=== PATIENT | female | born 1945 | race Caucasian/White ===

== ENCOUNTER 2018-07-22 10:30 | Outpatient (RCR) | payer MEDICARE, OTHER, SELFPAY ==
--- NOTE | 2018-05-15 17:34 | PT.OIE ---
Current Diagnoses Type 2 diabetes mellitus with diabetic neuropathy, unspecified (05/15/18) Corns and callosities (05/15/18) Stiffness of unspecified ankle, not elsewhere classified (05/15/18) Muscle weakness (generalized) (05/15/18) Other abnormalities of gait and mobility (05/15/18) Localized edema (05/15/18) Provider Visit Care Team Role Provider Type Stefani Simpson PA-C Attending Provider Non-Staff Specialty: Medical Address: [address] [place] [address], [id number] Email: Physical Therapy Initial Evaluation PT-OP-A Visit Information Start: 05/15/18 16:46 Freq: Status: Active Protocol: Document 05/15/18 11:15 DCW (Rec: 05/15/18 17:32 DCW [id number]) Out-Patient Physical Therapy Visit Information Visit Information Visit Type Initial Evaluation Visit Start Time 11:15 Visit Stop Time 11:55 Total Visit Minutes 40 Visit Number 1 Number of PROPELLER TESTER Visits 0 Evaluation Information Evaluation Date 05/15/18 PT-OP-B Current Condition Start: 05/15/18 16:46 Freq: Status: Active Protocol: Document 05/15/18 11:15 DCW (Rec: 05/15/18 17:32 DCW [id number]) Current Condition History of Current Condition Onset Date s/p 4 years Current Complaints Pain, weakness, edema, and neuropathy in B feet, L>R. History of Current Condition Pt is a 72 year old female reporting a complicated and tangential history of bilateral ankle edema, pain, weakness, and difficulty walking. Pt reports that following an Aortic valve replacement in October,, she was doing well for 8 months, but then began getting sicker and sicker, bouncing in and out of hospitals and nursing homes, until finding that she had an infection in her replaced valve, resulting in another surgery in June,. 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 This has made it very difficult for her to go out and participate in any activities, and she struggles just walking, or being out in her yard. 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 Treatment Goals Patient/Caregiver Goals Improve functional mobility, decrease ankle edema PT-OP-C Subjective Start: 05/15/18 16:46 Freq: Status: Active Protocol: Document 05/15/18 11:15 DCW (Rec: 05/15/18 17:32 DCW [id number]) Patient Questionnaires Lower Extremity Functional Scale LEFS Score 37/80 = 46.25% LEFS Impairment 40 to 59% Impaired (Score 32- 47) OP-PT Pain Assessment Location Bilateral Ankle Intensity 3 Scale Used Numeric (1 - 10) Description Dull Tightness PT-OP-H Neuro Start: 05/15/18 16:46 Freq: Status: Active Protocol: Document 05/15/18 11:15 DCW (Rec: 05/15/18 17:32 DCW [id number]) Sensation Evaluation Gross Sensation Gross Sensation Left LE Impaired Sensation Description Numbness Location Details Right Foot Light Touch Intact/Normal Sharp/Dull Intact/Normal Deep Pressure Intact/Normal Left Foot Light Touch Absent Sharp/Dull Impaired Deep Pressure Impaired PT-OP-J Posture/Palpation/Skin Start: 05/15/18 16:46 Freq: Status: Active Protocol: Document 05/15/18 11:15 DCW (Rec: 05/15/18 17:32 DCW [id number]) Skin Assessment Edema Assessment Bilateral Ankle Edema Type Pitting Edema Degree 3+ Edema Appearance Discolored Firm Subjective Edema Description Pain Tightness Circumference Measurement 4 Location 10 cm Superior to Malleoli Comments L 31, R 34.2 3 Location Malleolar Comments L 38.5, R 37.2 2 Location Mid-Arch Comments L 28.7, R 29.5 1 Location Figure-8 Ankle Comments L 72.4, R 70.5 PT-OP-K Range of Motion Start: 05/15/18 16:46 Freq: Status: Active Protocol: Document 05/15/18 11:15 DCW (Rec: 05/15/18 17:32 DCW [id number]) Ankle and Foot Goniometric Range of Motion Ankle and Foot Measured in Degrees Right Active Ankle/Foot ROM WFL No Testing Position Sitting Dorsiflexion with Knee Flexed 10 Plantarflexion 45 Inversion 20 Eversion 20 Left Active Ankle/Foot ROM WFL No Testing Position Sitting Dorsiflexion with Knee Flexed 5 Plantarflexion 42 Inversion 13 Eversion 15 Ankle and Foot ROM Limitations ROM Limitations Soft Tissue Tightness Swelling PT-OP-M Strength Start: 05/15/18 16:46 Freq: Status: Active Protocol: Document 05/15/18 11:15 DCW (Rec: 05/15/18 17:32 DCW [id number]) Hip Strength Hip Manual Muscle Testing Right Flexion (L2) 4+ Good+ Abduction 4 Good Adduction 4- Good- Left Flexion (L2) 4 Good Abduction 4 Good Adduction 4- Good- Knee Strength Knee Manual Muscle Testing Right Flexion (S2) 4+ Good+ Extension (L3) 4+ Good+ Left Flexion (S2) 4+ Good+ Extension (L3) 4+ Good+ Ankle/Foot Strength Ankle and Foot Manual Muscle Testing Right Dorsiflexion (L4) 4- Good- Plantarflexion (S1) 3+ Fair+ Inversion 4- Good- Eversion (S1) 4 Good Left Dorsiflexion (L4) 4 Good Plantarflexion (S1) 3+ Fair+ Inversion 4- Good- Eversion (S1) 4 Good PT-OP-Q Treatments Start: 05/15/18 16:46 Freq: Status: Active Protocol: Document 05/15/18 11:15 DCW (Rec: 05/15/18 17:32 [facility] [id number]) Therapeutic Exercises Sitting Exercises 2 Sitting Exercise Name Resisted Ankle plantar flexion Side bilateral Resistance Lv 2 Equipment Used T-band 1 Sitting Exercise Name Resisted Ankle dorsiflexion Side bilateral Resistance Lv 2 Equipment Used T-band PT-OP-T Assessment and Plan Start: 05/15/18 16:46 Freq: Status: Active Protocol: Document 05/15/18 11:15 DCW (Rec: 05/15/18 17:32 [facility] [id number]) Physical Therapy Assessment Rehab Potential Rehabilitation Potential Good Evaluation Complexity Number of Personal Factors/Comorbidities 3 or More Number of Body Systems Impaired 4 or More Clinical Presentation at Evaluation Unstable Impairments Impairments Activity Tolerance Edema Functional Activities Gait Pain ROM Sensation Soft Tissue Mobility Strength Goals Four Impairment Ankle ROM Axle Bearing Polisher Goal (LTG) Bilateral ankle ROM to WNL LTG Duration 07/15/18 Three Impairment Strength Axle Bearing Polisher Goal (LTG) Bilateral LE MMT grossly 4/5 LTG Duration 07/15/18 Two Impairment Edema Short Term Goal (STG) Pt girth around malleoli to decrease 3 cm STG Duration 06/14/18 Fdc Goal (LTG) Pt figure-8 measurement to decrease by at least 5 cm LTG Duration 07/15/18 One Impairment Activity participation Short Term Goal (STG) Pt to report ability to walk across yard without feeling off balance STG Duration 06/14/18 Assessment Summary Assessment Pt presents with significant 3 + pitting edema in bilateral ankles, decreased activity tolerance, weakness, decreased ROM, limited activity tolerance, and left-foot stocking neuropathy below the ankle. Pt should benefit from skilled therapy focusing on ankle mobility and strengthening, edema control, patient education, and pain- control modalities. Physical Therapy Plan Frequency and Duration Frequency of Treatment 2x/Week Duration of Treatment 12 weeks Plan of Care Start Date 05/15/18 Plan of Care End Date 08/07/18 Therapeutic Interventions Therapeutic Interventions Aquatic Therapy Gait Training Home Exercise Program Joint Mobilizations Lymphedema Management Manual Therapy Neuromuscular Re-education Patient/Caregiver Education Self-Care/Home Management Soft Tissue Mobilization Therapeutic Activities Therapeutic Exercises Modalities Cold Pack/Ice Massage Electric Stimulation Hot Packs Ultrasound Next Visit Focus/Plan Next Note Type Treatment Note Next Visit Plan Edema management, ankle strengthening
--- NOTE | 2018-05-15 17:35 | PT.OPPOC ---
Current Diagnoses Type 2 diabetes mellitus with diabetic neuropathy, unspecified (05/15/18) Corns and callosities (05/15/18) Stiffness of unspecified ankle, not elsewhere classified (05/15/18) Muscle weakness (generalized) (05/15/18) Other abnormalities of gait and mobility (05/15/18) Localized edema (05/15/18) Provider Visit Care Team Role Provider Type Stefani Simpson PA-C Attending Provider Non-Staff Specialty: Medical Address: [address] [place] [address], [id number] Email: Plan Of Care PT-OP-T Assessment and Plan Start: 05/15/18 16:46 Freq: Status: Active Protocol: Document 05/15/18 11:15 DCW (Rec: 05/15/18 17:32 DCW [id number]) Physical Therapy Assessment Rehab Potential Rehabilitation Potential Good Evaluation Complexity Number of Personal Factors/Comorbidities 3 or More Number of Body Systems Impaired 4 or More Clinical Presentation at Evaluation Unstable Impairments Impairments Activity Tolerance Edema Functional Activities Gait Pain ROM Sensation Soft Tissue Mobility Strength Goals Four Impairment Ankle ROM Spa Manager Goal (LTG) Bilateral ankle ROM to WNL LTG Duration 07/15/18 Three Impairment Strength Spa Manager Goal (LTG) Bilateral LE MMT grossly 4/5 LTG Duration 07/15/18 Two Impairment Edema Short Term Goal (STG) Pt girth around malleoli to decrease 3 cm STG Duration 06/14/18 Spa Manager Goal (LTG) Pt figure-8 measurement to decrease by at least 5 cm LTG Duration 07/15/18 One Impairment Activity participation Short Term Goal (STG) Pt to report ability to walk across yard without feeling off balance STG Duration 06/14/18 Assessment Summary Assessment Pt presents with significant 3 + pitting edema in bilateral ankles, decreased activity tolerance, weakness, decreased ROM, limited activity tolerance, and left-foot stocking neuropathy below the ankle. Pt should benefit from skilled therapy focusing on ankle mobility and strengthening, edema control, patient education, and pain- control modalities. Physical Therapy Plan Frequency and Duration Frequency of Treatment 2x/Week Duration of Treatment 12 weeks Plan of Care Start Date 05/15/18 Plan of Care End Date 08/07/18 Therapeutic Interventions Therapeutic Interventions Aquatic Therapy Gait Training Home Exercise Program Joint Mobilizations Lymphedema Management Manual Therapy Neuromuscular Re-education Patient/Caregiver Education Self-Care/Home Management Soft Tissue Mobilization Therapeutic Activities Therapeutic Exercises Modalities Cold Pack/Ice Massage Electric Stimulation Hot Packs Ultrasound Next Visit Focus/Plan Next Note Type Treatment Note Next Visit Plan Edema management, ankle strengthening Plan of Care Dates Plan of Care Start Date 05/15/18 Plan of Care End Date 08/07/18 Please Sign and Return: I have reviewed this Plan of Care and certify that the skilled therapy services above are required to meet the patient?s needs. Physician Signature Date Printed Name and Credentials Clinical Instructor Signature Printed Name and Credentials
--- NOTE | 2018-06-04 16:29 | PT.OTN ---
Current Diagnoses Corns and callosities (06/04/18) Localized edema (06/04/18) Physical Therapy Treatment Note PT-OP-A Visit Information Start: 05/15/18 16:46 Freq: Status: Active Protocol: Document 06/04/18 11:22 [facility] (Rec: 06/04/18 16:29 [facility] [id number]) Out-Patient Physical Therapy Visit Information Visit Information Visit Type Treatment Note Visit Start Time 11:22 Visit Stop Time 12:07 Total Visit Minutes 45 Visit Number 2 Number of PATIENT PORTAL REPRESENTATIVE Visits 0 Evaluation Information Evaluation Date 05/15/18 PT-OP-B Current Condition Start: 05/15/18 16:46 Freq: Status: Active Protocol: Document 05/15/18 11:15 DCW (Rec: 05/15/18 17:32 DCW [id number]) Current Condition History of Current Condition Onset Date s/p 4 years Current Complaints Pain, weakness, edema, and neuropathy in B feet, L>R. History of Current Condition Pt is a 72 year old female reporting a complicated and tangential history of bilateral ankle edema, pain, weakness, and difficulty walking. Pt reports that following an Aortic valve replacement in October,, she was doing well for 8 months, but then began getting sicker and sicker, bouncing in and out of hospitals and nursing homes, until finding that she had an infection in her replaced valve, resulting in another surgery in June,. 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 This has made it very difficult for her to go out and participate in any activities, and she struggles just walking, or being out in her yard. 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 Doesn't wear compression socks, has had hard time getting fit. Takes small dose Furosemide, unable to take more. PT-OP-H Neuro Start: 05/15/18 16:46 Freq: Status: Active Protocol: Document 05/15/18 11:15 DCW (Rec: 05/15/18 17:32 DCW [id number]) Sensation Evaluation Gross Sensation Gross Sensation Left LE Impaired Sensation Description Numbness Location Details Right Foot Light Touch Intact/Normal Sharp/Dull Intact/Normal Deep Pressure Intact/Normal Left Foot Light Touch Absent Sharp/Dull Impaired Deep Pressure Impaired PT-OP-J Posture/Palpation/Skin Start: 05/15/18 16:46 Freq: Status: Active Protocol: Document 05/15/18 11:15 DCW (Rec: 05/15/18 17:32 DCW [id number]) Skin Assessment Edema Assessment Bilateral Ankle Edema Type Pitting Edema Degree 3+ Edema Appearance Discolored Firm Subjective Edema Description Pain Tightness Circumference Measurement 4 Location 10 cm Superior to Malleoli Comments L 31, R 34.2 3 Location Malleolar Comments L 38.5, R 37.2 2 Location Mid-Arch Comments L 28.7, R 29.5 1 Location Figure-8 Ankle Comments L 72.4, R 70.5 PT-OP-K Range of Motion Start: 05/15/18 16:46 Freq: Status: Active Protocol: Document 05/15/18 11:15 DCW (Rec: 05/15/18 17:32 DCW [id number]) Ankle and Foot Goniometric Range of Motion Ankle and Foot Measured in Degrees Right Active Ankle/Foot ROM WFL No Testing Position Sitting Dorsiflexion with Knee Flexed 10 Plantarflexion 45 Inversion 20 Eversion 20 Left Active Ankle/Foot ROM WFL No Testing Position Sitting Dorsiflexion with Knee Flexed 5 Plantarflexion 42 Inversion 13 Eversion 15 Ankle and Foot ROM Limitations ROM Limitations Soft Tissue Tightness Swelling PT-OP-M Strength Start: 05/15/18 16:46 Freq: Status: Active Protocol: Document 05/15/18 11:15 DCW (Rec: 05/15/18 17:32 DCW [id number]) Hip Strength Hip Manual Muscle Testing Right Flexion (L2) 4+ Good+ Abduction 4 Good Adduction 4- Good- Left Flexion (L2) 4 Good Abduction 4 Good Adduction 4- Good- Knee Strength Knee Manual Muscle Testing Right Flexion (S2) 4+ Good+ Extension (L3) 4+ Good+ Left Flexion (S2) 4+ Good+ Extension (L3) 4+ Good+ Ankle/Foot Strength Ankle and Foot Manual Muscle Testing Right Dorsiflexion (L4) 4- Good- Plantarflexion (S1) 3+ Fair+ Inversion 4- Good- Eversion (S1) 4 Good Left Dorsiflexion (L4) 4 Good Plantarflexion (S1) 3+ Fair+ Inversion 4- Good- Eversion (S1) 4 Good PT-OP-Q Treatments Start: 05/15/18 16:46 Freq: Status: Active Protocol: Document 06/04/18 11:22 [facility] (Rec: 06/04/18 11:45 [facility] [id number]) Cardio Equipment Recumbent Elliptical (Sparktrend) Duration (Minutes) 5 Resistance 1 Therapeutic Exercises Sitting Exercises 4 Sitting Exercise Name quad sets, glut sets, SAQ, hip IR/ER, hip ab/ad Reps/Minutes 10x ea 3 Sitting Exercise Name ankle circles Reps/Minutes 10x ea direction toma 2 Sitting Exercise Name Resisted Ankle plantar flexion Side bilateral Resistance Lv 2 Equipment Used T-band 1 Sitting Exercise Name Resisted Ankle dorsiflexion Side bilateral Resistance Lv 2 Equipment Used T-band Self-Care/Home Management Treatment Education Patient Education Home Exercise Program Other Education Importance of compression stockings for edema reduction; patient previously told they were not made large enough for her. Measurements taken and patient given written info regarding correct size and compression level (start 15-20 mm HG) she can order online. Given written HEP PT-OP-T Assessment and Plan Start: 05/15/18 16:46 Freq: Status: Active Protocol: Document 06/04/18 11:22 [facility] (Rec: 06/04/18 16:29 [facility] [id number]) Physical Therapy Assessment Assessment Summary Assessment Tolerated today's PT session well with increased ther ex, demonstrated good understanding of exercise handouts and is receptive to obtaining compression stockings; has been frustrated by previously being told they weren't made large enough for her. Patient requires much encouragement Physical Therapy Plan Frequency and Duration Frequency of Treatment 2x/Week Duration of Treatment 12 weeks Plan of Care Start Date 05/15/18 Plan of Care End Date 08/07/18 Therapeutic Interventions Therapeutic Interventions Aquatic Therapy Gait Training Home Exercise Program Joint Mobilizations Lymphedema Management Manual Therapy Neuromuscular Re-education Patient/Caregiver Education Self-Care/Home Management Soft Tissue Mobilization Therapeutic Activities Therapeutic Exercises Modalities Cold Pack/Ice Massage Electric Stimulation Hot Packs Ultrasound Next Visit Focus/Plan Next Note Type Treatment Note Next Visit Plan Edema management, ankle strengthening
--- NOTE | 2018-06-06 14:55 | PT.OTN ---
Current Diagnoses Corns and callosities (06/06/18) Localized edema (06/06/18) Physical Therapy Treatment Note PT-OP-A Visit Information Start: 05/15/18 16:46 Freq: Status: Active Protocol: Document 06/06/18 13:02 [facility] (Rec: 06/06/18 13:48 [facility] [id number]) Out-Patient Physical Therapy Visit Information Visit Information Visit Type Treatment Note Visit Start Time 13:02 Visit Stop Time 13:47 Total Visit Minutes 45 Visit Number 3 Number of WOOD CABINET FINISHER Visits 0 PT-OP-B Current Condition Start: 05/15/18 16:46 Freq: Status: Active Protocol: Document 05/15/18 11:15 DCW (Rec: 05/15/18 17:32 DCW [id number]) Current Condition History of Current Condition Onset Date s/p 4 years Current Complaints Pain, weakness, edema, and neuropathy in B feet, L>R. History of Current Condition Pt is a 72 year old female reporting a complicated and tangential history of bilateral ankle edema, pain, weakness, and difficulty walking. Pt reports that following an Aortic valve replacement in October,, she was doing well for 8 months, but then began getting sicker and sicker, bouncing in and out of hospitals and nursing homes, until finding that she had an infection in her replaced valve, resulting in another surgery in June,. 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 This has made it very difficult for her to go out and participate in any activities, and she struggles just walking, or being out in her yard. 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 States she hasn't ordered compression stockings yet, but plans to with assistance of . Has some questions about HEP PT-OP-H Neuro Start: 05/15/18 16:46 Freq: Status: Active Protocol: Document 05/15/18 11:15 DCW (Rec: 05/15/18 17:32 DCW [id number]) Sensation Evaluation Gross Sensation Gross Sensation Left LE Impaired Sensation Description Numbness Location Details Right Foot Light Touch Intact/Normal Sharp/Dull Intact/Normal Deep Pressure Intact/Normal Left Foot Light Touch Absent Sharp/Dull Impaired Deep Pressure Impaired PT-OP-J Posture/Palpation/Skin Start: 05/15/18 16:46 Freq: Status: Active Protocol: Document 05/15/18 11:15 DCW (Rec: 05/15/18 17:32 DCW [id number]) Skin Assessment Edema Assessment Bilateral Ankle Edema Type Pitting Edema Degree 3+ Edema Appearance Discolored Firm Subjective Edema Description Pain Tightness Circumference Measurement 4 Location 10 cm Superior to Malleoli Comments L 31, R 34.2 3 Location Malleolar Comments L 38.5, R 37.2 2 Location Mid-Arch Comments L 28.7, R 29.5 1 Location Figure-8 Ankle Comments L 72.4, R 70.5 PT-OP-K Range of Motion Start: 05/15/18 16:46 Freq: Status: Active Protocol: Document 05/15/18 11:15 DCW (Rec: 05/15/18 17:32 DCW [id number]) Ankle and Foot Goniometric Range of Motion Ankle and Foot Measured in Degrees Right Active Ankle/Foot ROM WFL No Testing Position Sitting Dorsiflexion with Knee Flexed 10 Plantarflexion 45 Inversion 20 Eversion 20 Left Active Ankle/Foot ROM WFL No Testing Position Sitting Dorsiflexion with Knee Flexed 5 Plantarflexion 42 Inversion 13 Eversion 15 Ankle and Foot ROM Limitations ROM Limitations Soft Tissue Tightness Swelling PT-OP-M Strength Start: 05/15/18 16:46 Freq: Status: Active Protocol: Document 05/15/18 11:15 DCW (Rec: 05/15/18 17:32 DCW [id number]) Hip Strength Hip Manual Muscle Testing Right Flexion (L2) 4+ Good+ Abduction 4 Good Adduction 4- Good- Left Flexion (L2) 4 Good Abduction 4 Good Adduction 4- Good- Knee Strength Knee Manual Muscle Testing Right Flexion (S2) 4+ Good+ Extension (L3) 4+ Good+ Left Flexion (S2) 4+ Good+ Extension (L3) 4+ Good+ Ankle/Foot Strength Ankle and Foot Manual Muscle Testing Right Dorsiflexion (L4) 4- Good- Plantarflexion (S1) 3+ Fair+ Inversion 4- Good- Eversion (S1) 4 Good Left Dorsiflexion (L4) 4 Good Plantarflexion (S1) 3+ Fair+ Inversion 4- Good- Eversion (S1) 4 Good PT-OP-Q Treatments Start: 05/15/18 16:46 Freq: Status: Active Protocol: Document 06/06/18 13:02 [facility] (Rec: 06/06/18 13:48 [facility] [id number]) Cardio Equipment Recumbent Stepper (Sci-Fit) Duration (Minutes) 7 Resistance 1 Seat Position 12 Gym Equipment Shuttle Recovery Unilateral Squats Resistance 37 Shuttle Recovery Platform Stable Reps/Time 10x Bilateral Squats Resistance 50 Shuttle Recovery Platform Stable Reps/Time 10x Therapeutic Exercises Supine Exercises 3 Supine Exercise Name SAQ, heel slide, hip ab Reps/Minutes 10 1 Supine Exercise Name hip ab/ER with L2 TB Reps/Minutes 10 2 Supine Exercise Name pillow squeeze Reps/Minutes 12 Sitting Exercises 4 Sitting Exercise Name quad sets, glut sets, SAQ, hip IR/ER, hip ab/ad Reps/Minutes 10x ea 3 Sitting Exercise Name ankle circles Reps/Minutes 10x ea direction toma 2 Sitting Exercise Name Resisted Ankle plantar flexion , df, inv,ev Side bilateral Resistance Lv 2 Equipment Used T-band Standing Exercises 1 Standing Exercise Name HC stretch, standing ankle pumps Equipment Used ADI Manual Therapy Treatment Taping 1 Body Location right foot ankle Treatment Focus edema reduction Type of Tape Kinesio Tape Self-Care/Home Management Treatment Education Patient Education Home Exercise Program Other Education review HEP with modifications and clarifications made. PT-OP-T Assessment and Plan Start: 05/15/18 16:46 Freq: Status: Active Protocol: Document 06/06/18 13:02 [facility] (Rec: 06/06/18 14:55 [facility] [id number]) Physical Therapy Assessment Goals Four Impairment Ankle ROM Assisted Goal (LTG) Bilateral ankle ROM to WNL LTG Duration 07/15/18 Three Impairment Strength Assisted Goal (LTG) Bilateral LE MMT grossly 4/5 LTG Duration 07/15/18 Two Impairment Edema Short Term Goal (STG) Pt girth around malleoli to decrease 3 cm STG Duration 06/14/18 Assisted Goal (LTG) Pt figure-8 measurement to decrease by at least 5 cm LTG Duration 07/15/18 One Impairment Activity participation Short Term Goal (STG) Pt to report ability to walk across yard without feeling off balance STG Duration 06/14/18 Assessment Summary Assessment Good tolerance for progression of ther ex, has not ordered compression stockings yet. Demonstrated good understanding of clarifications and corrections made to HEP performance, but short-term memory appears impaired so despite written handout may need further review. Feel compression stockings will be most effective in decreasing her edema but will assess response to kinesiotape, and do manual lymphatic drainage next session Physical Therapy Plan Frequency and Duration Frequency of Treatment 2x/Week Duration of Treatment 12 weeks Plan of Care Start Date 05/15/18 Plan of Care End Date 08/07/18 Therapeutic Interventions Therapeutic Interventions Aquatic Therapy Gait Training Home Exercise Program Joint Mobilizations Lymphedema Management Manual Therapy Neuromuscular Re-education Patient/Caregiver Education Self-Care/Home Management Soft Tissue Mobilization Therapeutic Activities Therapeutic Exercises Modalities Cold Pack/Ice Massage Electric Stimulation Hot Packs Ultrasound Next Visit Focus/Plan Next Note Type Treatment Note Next Visit Plan Edema management, ankle strengthening, LE strengthening, manual lymphatic drainage. May consider LE lymphatic wrapping .
--- NOTE | 2018-06-11 17:30 | PT.OTN ---
Current Diagnoses Corns and callosities (06/11/18) Localized edema (06/11/18) Physical Therapy Treatment Note PT-OP-A Visit Information Start: 05/15/18 16:46 Freq: Status: Active Protocol: Document 06/11/18 09:45 [facility] (Rec: 06/11/18 17:30 [facility] [id number]) Out-Patient Physical Therapy Visit Information Visit Information Visit Type Treatment Note Visit Start Time 09:45 Visit Stop Time 10:25 Total Visit Minutes 40 Visit Number 4 Number of SPECIFICATION WRITER Visits 1 Evaluation Information Evaluation Date 05/15/18 PT-OP-B Current Condition Start: 05/15/18 16:46 Freq: Status: Active Protocol: Document 05/15/18 11:15 DC[facility] (Rec: 05/15/18 17:32 DCW [id number]) Current Condition History of Current Condition Onset Date s/p 4 years Current Complaints Pain, weakness, edema, and neuropathy in B feet, L>R. History of Current Condition Pt is a 72 year old female reporting a complicated and tangential history of bilateral ankle edema, pain, weakness, and difficulty walking. Pt reports that following an Aortic valve replacement in October,, she was doing well for 8 months, but then began getting sicker and sicker, bouncing in and out of hospitals and nursing homes, until finding that she had an infection in her replaced valve, resulting in another surgery in June,. 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 This has made it very difficult for her to go out and participate in any activities, and she struggles just walking, or being out in her yard. 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 She also had some redness after taking the tape off. PT-OP-H Neuro Start: 05/15/18 16:46 Freq: Status: Active Protocol: Document 05/15/18 11:15 [facility] (Rec: 05/15/18 17:32 DCW [id number]) Sensation Evaluation Gross Sensation Gross Sensation Left LE Impaired Sensation Description Numbness Location Details Right Foot Light Touch Intact/Normal Sharp/Dull Intact/Normal Deep Pressure Intact/Normal Left Foot Light Touch Absent Sharp/Dull Impaired Deep Pressure Impaired PT-OP-J Posture/Palpation/Skin Start: 05/15/18 16:46 Freq: Status: Active Protocol: Document 05/15/18 11:15 DCW (Rec: 05/15/18 17:32 DCW [id number]) Skin Assessment Edema Assessment Bilateral Ankle Edema Type Pitting Edema Degree 3+ Edema Appearance Discolored Firm Subjective Edema Description Pain Tightness Circumference Measurement 4 Location 10 cm Superior to Malleoli Comments L 31, R 34.2 3 Location Malleolar Comments L 38.5, R 37.2 2 Location Mid-Arch Comments L 28.7, R 29.5 1 Location Figure-8 Ankle Comments L 72.4, R 70.5 PT-OP-K Range of Motion Start: 05/15/18 16:46 Freq: Status: Active Protocol: Document 05/15/18 11:15 DCW (Rec: 05/15/18 17:32 DCW [id number]) Ankle and Foot Goniometric Range of Motion Ankle and Foot Measured in Degrees Right Active Ankle/Foot ROM WFL No Testing Position Sitting Dorsiflexion with Knee Flexed 10 Plantarflexion 45 Inversion 20 Eversion 20 Left Active Ankle/Foot ROM WFL No Testing Position Sitting Dorsiflexion with Knee Flexed 5 Plantarflexion 42 Inversion 13 Eversion 15 Ankle and Foot ROM Limitations ROM Limitations Soft Tissue Tightness Swelling PT-OP-M Strength Start: 05/15/18 16:46 Freq: Status: Active Protocol: Document 05/15/18 11:15 DCW (Rec: 05/15/18 17:32 DCW [id number]) Hip Strength Hip Manual Muscle Testing Right Flexion (L2) 4+ Good+ Abduction 4 Good Adduction 4- Good- Left Flexion (L2) 4 Good Abduction 4 Good Adduction 4- Good- Knee Strength Knee Manual Muscle Testing Right Flexion (S2) 4+ Good+ Extension (L3) 4+ Good+ Left Flexion (S2) 4+ Good+ Extension (L3) 4+ Good+ Ankle/Foot Strength Ankle and Foot Manual Muscle Testing Right Dorsiflexion (L4) 4- Good- Plantarflexion (S1) 3+ Fair+ Inversion 4- Good- Eversion (S1) 4 Good Left Dorsiflexion (L4) 4 Good Plantarflexion (S1) 3+ Fair+ Inversion 4- Good- Eversion (S1) 4 Good PT-OP-Q Treatments Start: 05/15/18 16:46 Freq: Status: Active Protocol: Document 06/11/18 09:45 [facility] (Rec: 06/11/18 17:30 [facility] [email or web address]) Cardio Equipment Recumbent Elliptical (BiodShangPin) Duration (Minutes) 8 Resistance 1 Gym Equipment Shuttle Recovery Unilateral Squats Resistance 37 Shuttle Recovery Platform Stable Reps/Time 10x Bilateral Squats Resistance 50 Shuttle Recovery Platform Stable Reps/Time 10x Therapeutic Exercises Supine Exercises 3 Supine Exercise Name SAQ, heel slide, hip ab Reps/Minutes 10 1 Supine Exercise Name hip ab/ER with L2 TB Reps/Minutes 10 2 Supine Exercise Name pillow squeeze Reps/Minutes 12 Sitting Exercises 4 Sitting Exercise Name quad sets, glut sets, SAQ, hip IR/ER, hip ab/ad Reps/Minutes 10x ea 3 Sitting Exercise Name ankle circles Reps/Minutes 10x ea direction toma 2 Sitting Exercise Name Resisted Ankle plantar flexion , df, inv,ev Side bilateral Resistance Lv 2 Equipment Used T-band Standing Exercises 1 Standing Exercise Name HC stretch, standing ankle pumps Equipment Used ADI PT-OP-T Assessment and Plan Start: 05/15/18 16:46 Freq: Status: Active Protocol: Document 06/11/18 09:45 [facility] (Rec: 06/11/18 17:30 [facility] [email or web address]) Physical Therapy Assessment Assessment Summary Assessment Pt need cues for exercise technique and use of correct muscles. She will try and get compression stockings before the next visit. Physical Therapy Plan Frequency and Duration Frequency of Treatment 2x/Week Duration of Treatment 12 weeks Plan of Care Start Date 05/15/18 Plan of Care End Date 08/07/18 Therapeutic Interventions Therapeutic Interventions Aquatic Therapy Gait Training Home Exercise Program Joint Mobilizations Lymphedema Management Manual Therapy Neuromuscular Re-education Patient/Caregiver Education Self-Care/Home Management Soft Tissue Mobilization Therapeutic Activities Therapeutic Exercises Modalities Cold Pack/Ice Massage Electric Stimulation Hot Packs Ultrasound Next Visit Focus/Plan Next Note Type Treatment Note Next Visit Plan Edema management, ankle strengthening, LE strengthening, manual lymphatic drainage. May consider LE lymphatic wrapping .
--- NOTE | 2018-06-14 09:43 | PT.OTN ---
Current Diagnoses Corns and callosities (06/14/18) Localized edema (06/14/18) Physical Therapy Treatment Note PT-OP-A Visit Information Start: 05/15/18 16:46 Freq: Status: Active Protocol: Document 06/14/18 09:00 DCW (Rec: 06/14/18 09:43 DCW [id number]) Out-Patient Physical Therapy Visit Information Visit Information Visit Type Treatment Note Visit Start Time 09:00 Visit Stop Time 09:45 Total Visit Minutes 45 Visit Number 5 Number of AIRPORT DUTY MANAGER Visits 0 Evaluation Information Evaluation Date 05/15/18 PT-OP-B Current Condition Start: 05/15/18 16:46 Freq: Status: Active Protocol: Document 05/15/18 11:15 DCW (Rec: 05/15/18 17:32 DCW [id number]) Current Condition History of Current Condition Onset Date s/p 4 years Current Complaints Pain, weakness, edema, and neuropathy in B feet, L>R. History of Current Condition Pt is a 72 year old female reporting a complicated and tangential history of bilateral ankle edema, pain, weakness, and difficulty walking. Pt reports that following an Aortic valve replacement in October,, she was doing well for 8 months, but then began getting sicker and sicker, bouncing in and out of hospitals and nursing homes, until finding that she had an infection in her replaced valve, resulting in another surgery in June,. 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 This has made it very difficult for her to go out and participate in any activities, and she struggles just walking, or being out in her yard. 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 PT-OP-H Neuro Start: 05/15/18 16:46 Freq: Status: Active Protocol: Document 05/15/18 11:15 DCW (Rec: 05/15/18 17:32 DCW [id number]) Sensation Evaluation Gross Sensation Gross Sensation Left LE Impaired Sensation Description Numbness Location Details Right Foot Light Touch Intact/Normal Sharp/Dull Intact/Normal Deep Pressure Intact/Normal Left Foot Light Touch Absent Sharp/Dull Impaired Deep Pressure Impaired PT-OP-J Posture/Palpation/Skin Start: 05/15/18 16:46 Freq: Status: Active Protocol: Document 05/15/18 11:15 DCW (Rec: 05/15/18 17:32 DCW [id number]) Skin Assessment Edema Assessment Bilateral Ankle Edema Type Pitting Edema Degree 3+ Edema Appearance Discolored Firm Subjective Edema Description Pain Tightness Circumference Measurement 4 Location 10 cm Superior to Malleoli Comments L 31, R 34.2 3 Location Malleolar Comments L 38.5, R 37.2 2 Location Mid-Arch Comments L 28.7, R 29.5 1 Location Figure-8 Ankle Comments L 72.4, R 70.5 PT-OP-K Range of Motion Start: 05/15/18 16:46 Freq: Status: Active Protocol: Document 05/15/18 11:15 DCW (Rec: 05/15/18 17:32 DCW [id number]) Ankle and Foot Goniometric Range of Motion Ankle and Foot Measured in Degrees Right Active Ankle/Foot ROM WFL No Testing Position Sitting Dorsiflexion with Knee Flexed 10 Plantarflexion 45 Inversion 20 Eversion 20 Left Active Ankle/Foot ROM WFL No Testing Position Sitting Dorsiflexion with Knee Flexed 5 Plantarflexion 42 Inversion 13 Eversion 15 Ankle and Foot ROM Limitations ROM Limitations Soft Tissue Tightness Swelling PT-OP-M Strength Start: 05/15/18 16:46 Freq: Status: Active Protocol: Document 05/15/18 11:15 DCW (Rec: 05/15/18 17:32 DCW [id number]) Hip Strength Hip Manual Muscle Testing Right Flexion (L2) 4+ Good+ Abduction 4 Good Adduction 4- Good- Left Flexion (L2) 4 Good Abduction 4 Good Adduction 4- Good- Knee Strength Knee Manual Muscle Testing Right Flexion (S2) 4+ Good+ Extension (L3) 4+ Good+ Left Flexion (S2) 4+ Good+ Extension (L3) 4+ Good+ Ankle/Foot Strength Ankle and Foot Manual Muscle Testing Right Dorsiflexion (L4) 4- Good- Plantarflexion (S1) 3+ Fair+ Inversion 4- Good- Eversion (S1) 4 Good Left Dorsiflexion (L4) 4 Good Plantarflexion (S1) 3+ Fair+ Inversion 4- Good- Eversion (S1) 4 Good PT-OP-Q Treatments Start: 05/15/18 16:46 Freq: Status: Active Protocol: Document 06/14/18 09:00 DCW (Rec: 06/14/18 09:43 DCW [id number]) Cardio Equipment Recumbent Elliptical (Biodex) Duration (Minutes) 8 Resistance 3 Gym Equipment Shuttle Recovery Unilateral Squats Resistance 37# Shuttle Recovery Platform Stable Reps/Time x20 Bilateral Squats Resistance 62# Shuttle Recovery Platform Stable Reps/Time x20 Therapeutic Exercises Supine Exercises 3 Supine Exercise Name SAQ, heel slide, hip ab Side bilateral Reps/Minutes x15 2 Supine Exercise Name Adductor ball squeeze Side bilateral Equipment Used Small purple ball Reps/Minutes x15 Comments 5 second hold Sitting Exercises 3 Sitting Exercise Name ankle circles Reps/Minutes 10x ea direction toma Standing Exercises 1 Standing Exercise Name HC stretch, standing ankle pumps Equipment Used ADI Other Exercises 3 Other Exercise Name Resisted Backward stepping Side bilateral Resistance Yellow Equipment Used T-band 2 Other Exercise Name Resisted Forward stepping Side bilateral Resistance Yellow Equipment Used T-band 1 Other Exercise Name Resisted Side-stepping Side bilateral Resistance Yellow Equipment Used T-band PT-OP-T Assessment and Plan Start: 05/15/18 16:46 Freq: Status: Active Protocol: Document 06/14/18 09:00 DCW (Rec: 06/14/18 09:43 DCW [id number]) Physical Therapy Assessment Goals Four Impairment Ankle ROM Forestry Professor Goal (LTG) Bilateral ankle ROM to WNL LTG Duration 07/15/18 Three Impairment Strength Forestry Professor Goal (LTG) Bilateral LE MMT grossly 4/5 LTG Duration 07/15/18 Two Impairment Edema Short Term Goal (STG) Pt girth around malleoli to decrease 3 cm STG Duration 06/14/18 Forestry Professor Goal (LTG) Pt figure-8 measurement to decrease by at least 5 cm LTG Duration 07/15/18 One Impairment Activity participation Short Term Goal (STG) Pt to report ability to walk across yard without feeling off balance STG Duration 06/14/18 Assessment Summary Assessment Pt required fewer cues today to perform TherEx, unfortunately pt still has not acquired compression stockings . Physical Therapy Plan Frequency and Duration Frequency of Treatment 2x/Week Duration of Treatment 12 weeks Plan of Care Start Date 05/15/18 Plan of Care End Date 08/07/18 Therapeutic Interventions Therapeutic Interventions Aquatic Therapy Gait Training Home Exercise Program Joint Mobilizations Lymphedema Management Manual Therapy Neuromuscular Re-education Patient/Caregiver Education Self-Care/Home Management Soft Tissue Mobilization Therapeutic Activities Therapeutic Exercises Modalities Cold Pack/Ice Massage Electric Stimulation Hot Packs Ultrasound Next Visit Focus/Plan Next Note Type Treatment Note Next Visit Plan Edema management, ankle strengthening, LE strengthening, manual lymphatic drainage. May consider LE lymphatic wrapping .
--- NOTE | 2018-06-19 16:42 | PT.OTN ---
Current Diagnoses Corns and callosities (06/19/18) Localized edema (06/19/18) Physical Therapy Treatment Note PT-OP-A Visit Information Start: 05/15/18 16:46 Freq: Status: Active Protocol: Document 06/19/18 16:00 DCW (Rec: 06/19/18 16:41 DCW [id number]) Out-Patient Physical Therapy Visit Information Visit Information Visit Type Treatment Note Visit Start Time 16:00 Visit Stop Time 16:45 Total Visit Minutes 45 Visit Number 6 Number of FORMING DEPARTMENT END FINDER Visits 0 Evaluation Information Evaluation Date 05/15/18 PT-OP-B Current Condition Start: 05/15/18 16:46 Freq: Status: Active Protocol: Document 05/15/18 11:15 DCW (Rec: 05/15/18 17:32 DCW [id number]) Current Condition History of Current Condition Onset Date s/p 4 years Current Complaints Pain, weakness, edema, and neuropathy in B feet, L>R. History of Current Condition Pt is a 72 year old female reporting a complicated and tangential history of bilateral ankle edema, pain, weakness, and difficulty walking. Pt reports that following an Aortic valve replacement in October,, she was doing well for 8 months, but then began getting sicker and sicker, bouncing in and out of hospitals and nursing homes, until finding that she had an infection in her replaced valve, resulting in another surgery in June,. 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 This has made it very difficult for her to go out and participate in any activities, and she struggles just walking, or being out in her yard. 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 PT-OP-H Neuro Start: 05/15/18 16:46 Freq: Status: Active Protocol: Document 05/15/18 11:15 DCW (Rec: 05/15/18 17:32 DCW [id number]) Sensation Evaluation Gross Sensation Gross Sensation Left LE Impaired Sensation Description Numbness Location Details Right Foot Light Touch Intact/Normal Sharp/Dull Intact/Normal Deep Pressure Intact/Normal Left Foot Light Touch Absent Sharp/Dull Impaired Deep Pressure Impaired PT-OP-J Posture/Palpation/Skin Start: 05/15/18 16:46 Freq: Status: Active Protocol: Document 05/15/18 11:15 DCW (Rec: 05/15/18 17:32 DCW [id number]) Skin Assessment Edema Assessment Bilateral Ankle Edema Type Pitting Edema Degree 3+ Edema Appearance Discolored Firm Subjective Edema Description Pain Tightness Circumference Measurement 4 Location 10 cm Superior to Malleoli Comments L 31, R 34.2 3 Location Malleolar Comments L 38.5, R 37.2 2 Location Mid-Arch Comments L 28.7, R 29.5 1 Location Figure-8 Ankle Comments L 72.4, R 70.5 PT-OP-K Range of Motion Start: 05/15/18 16:46 Freq: Status: Active Protocol: Document 05/15/18 11:15 DCW (Rec: 05/15/18 17:32 DCW [id number]) Ankle and Foot Goniometric Range of Motion Ankle and Foot Measured in Degrees Right Active Ankle/Foot ROM WFL No Testing Position Sitting Dorsiflexion with Knee Flexed 10 Plantarflexion 45 Inversion 20 Eversion 20 Left Active Ankle/Foot ROM WFL No Testing Position Sitting Dorsiflexion with Knee Flexed 5 Plantarflexion 42 Inversion 13 Eversion 15 Ankle and Foot ROM Limitations ROM Limitations Soft Tissue Tightness Swelling PT-OP-M Strength Start: 05/15/18 16:46 Freq: Status: Active Protocol: Document 05/15/18 11:15 DCW (Rec: 05/15/18 17:32 DCW [id number]) Hip Strength Hip Manual Muscle Testing Right Flexion (L2) 4+ Good+ Abduction 4 Good Adduction 4- Good- Left Flexion (L2) 4 Good Abduction 4 Good Adduction 4- Good- Knee Strength Knee Manual Muscle Testing Right Flexion (S2) 4+ Good+ Extension (L3) 4+ Good+ Left Flexion (S2) 4+ Good+ Extension (L3) 4+ Good+ Ankle/Foot Strength Ankle and Foot Manual Muscle Testing Right Dorsiflexion (L4) 4- Good- Plantarflexion (S1) 3+ Fair+ Inversion 4- Good- Eversion (S1) 4 Good Left Dorsiflexion (L4) 4 Good Plantarflexion (S1) 3+ Fair+ Inversion 4- Good- Eversion (S1) 4 Good PT-OP-Q Treatments Start: 05/15/18 16:46 Freq: Status: Active Protocol: Document 06/19/18 16:00 DCW (Rec: 06/19/18 16:41 DCW [id number]) Cardio Equipment Recumbent Elliptical (Biodex) Duration (Minutes) 8 Resistance 3 Gym Equipment Shuttle Recovery Bilateral Heel Raises Resistance 62@ Shuttle Recovery Platform Stable Reps/Time x20 Unilateral Squats Resistance 37# Shuttle Recovery Platform Stable Reps/Time x20 Bilateral Squats Resistance 62# Shuttle Recovery Platform Stable Reps/Time x20 Therapeutic Exercises Supine Exercises 4 Supine Exercise Name Bridging Side bilateral Comments verbal cues for glute activation 3 Supine Exercise Name SAQ, heel slide, hip ab Side bilateral Reps/Minutes x15 2 Supine Exercise Name Adductor ball squeeze Side bilateral Equipment Used Small purple ball Reps/Minutes x15 Comments 5 second hold Sitting Exercises 3 Sitting Exercise Name ankle circles Reps/Minutes 10x ea direction toma Standing Exercises 1 Standing Exercise Name HC stretch, standing ankle pumps Equipment Used ADI Other Exercises 3 Other Exercise Name Resisted Backward stepping Side bilateral Resistance Yellow Equipment Used T-band 2 Other Exercise Name Resisted Forward stepping Side bilateral Resistance Yellow Equipment Used T-band 1 Other Exercise Name Resisted Side-stepping Side bilateral Resistance Yellow Equipment Used T-band PT-OP-T Assessment and Plan Start: 05/15/18 16:46 Freq: Status: Active Protocol: Document 06/19/18 16:00 DCW (Rec: 06/19/18 16:41 DCW [id number]) Physical Therapy Assessment Goals Four Impairment Ankle ROM Auto Parts Salesperson Goal (LTG) Bilateral ankle ROM to WNL LTG Duration 07/15/18 Three Impairment Strength Usp Goal (LTG) Bilateral LE MMT grossly 4/5 LTG Duration 07/15/18 Two Impairment Edema Short Term Goal (STG) Pt girth around malleoli to decrease 3 cm STG Duration 06/14/18 Usp Goal (LTG) Pt figure-8 measurement to decrease by at least 5 cm LTG Duration 07/15/18 One Impairment Activity participation Short Term Goal (STG) Pt to report ability to walk across yard without feeling off balance STG Duration 06/14/18 Assessment Summary Assessment Pt admits that even with handouts and reminders, she frequently forgets to perform her HEP Physical Therapy Plan Frequency and Duration Frequency of Treatment 2x/Week Duration of Treatment 12 weeks Plan of Care Start Date 05/15/18 Plan of Care End Date 08/07/18 Therapeutic Interventions Therapeutic Interventions Aquatic Therapy Gait Training Home Exercise Program Joint Mobilizations Lymphedema Management Manual Therapy Neuromuscular Re-education Patient/Caregiver Education Self-Care/Home Management Soft Tissue Mobilization Therapeutic Activities Therapeutic Exercises Modalities Cold Pack/Ice Massage Electric Stimulation Hot Packs Ultrasound Next Visit Focus/Plan Next Note Type Treatment Note Next Visit Plan Edema management, ankle strengthening, LE strengthening, manual lymphatic drainage. May consider LE lymphatic wrapping .
--- NOTE | 2018-06-24 11:59 | PT.OTN ---
Current Diagnoses Corns and callosities (06/24/18) Localized edema (06/24/18) Physical Therapy Treatment Note PT-OP-A Visit Information Start: 05/15/18 16:46 Freq: Status: Active Protocol: Document 06/24/18 11:15 DCW (Rec: 06/24/18 11:58 DCW [id number]) Out-Patient Physical Therapy Visit Information Visit Information Visit Type Treatment Note Visit Start Time 11:15 Visit Stop Time 12:00 Total Visit Minutes 45 Visit Number 8 Number of JOB CAPTAIN Visits 0 Evaluation Information Evaluation Date 05/15/18 PT-OP-B Current Condition Start: 05/15/18 16:46 Freq: Status: Active Protocol: Document 05/15/18 11:15 DCW (Rec: 05/15/18 17:32 DCW [id number]) Current Condition History of Current Condition Onset Date s/p 4 years Current Complaints Pain, weakness, edema, and neuropathy in B feet, L>R. History of Current Condition Pt is a 72 year old female reporting a complicated and tangential history of bilateral ankle edema, pain, weakness, and difficulty walking. Pt reports that following an Aortic valve replacement in October,, she was doing well for 8 months, but then began getting sicker and sicker, bouncing in and out of hospitals and nursing homes, until finding that she had an infection in her replaced valve, resulting in another surgery in June,. 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 This has made it very difficult for her to go out and participate in any activities, and she struggles just walking, or being out in her yard. 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 Admits with the increased heat over the weekend, her ankles were so swollen she couldn't even turn them. PT-OP-H Neuro Start: 05/15/18 16:46 Freq: Status: Active Protocol: Document 05/15/18 11:15 DCW (Rec: 05/15/18 17:32 DCW [id number]) Sensation Evaluation Gross Sensation Gross Sensation Left LE Impaired Sensation Description Numbness Location Details Right Foot Light Touch Intact/Normal Sharp/Dull Intact/Normal Deep Pressure Intact/Normal Left Foot Light Touch Absent Sharp/Dull Impaired Deep Pressure Impaired PT-OP-J Posture/Palpation/Skin Start: 05/15/18 16:46 Freq: Status: Active Protocol: Document 05/15/18 11:15 DCW (Rec: 05/15/18 17:32 DCW [id number]) Skin Assessment Edema Assessment Bilateral Ankle Edema Type Pitting Edema Degree 3+ Edema Appearance Discolored Firm Subjective Edema Description Pain Tightness Circumference Measurement 4 Location 10 cm Superior to Malleoli Comments L 31, R 34.2 3 Location Malleolar Comments L 38.5, R 37.2 2 Location Mid-Arch Comments L 28.7, R 29.5 1 Location Figure-8 Ankle Comments L 72.4, R 70.5 PT-OP-K Range of Motion Start: 05/15/18 16:46 Freq: Status: Active Protocol: Document 05/15/18 11:15 DCW (Rec: 05/15/18 17:32 DCW [id number]) Ankle and Foot Goniometric Range of Motion Ankle and Foot Measured in Degrees Right Active Ankle/Foot ROM WFL No Testing Position Sitting Dorsiflexion with Knee Flexed 10 Plantarflexion 45 Inversion 20 Eversion 20 Left Active Ankle/Foot ROM WFL No Testing Position Sitting Dorsiflexion with Knee Flexed 5 Plantarflexion 42 Inversion 13 Eversion 15 Ankle and Foot ROM Limitations ROM Limitations Soft Tissue Tightness Swelling PT-OP-M Strength Start: 05/15/18 16:46 Freq: Status: Active Protocol: Document 05/15/18 11:15 DCW (Rec: 05/15/18 17:32 DCW [id number]) Hip Strength Hip Manual Muscle Testing Right Flexion (L2) 4+ Good+ Abduction 4 Good Adduction 4- Good- Left Flexion (L2) 4 Good Abduction 4 Good Adduction 4- Good- Knee Strength Knee Manual Muscle Testing Right Flexion (S2) 4+ Good+ Extension (L3) 4+ Good+ Left Flexion (S2) 4+ Good+ Extension (L3) 4+ Good+ Ankle/Foot Strength Ankle and Foot Manual Muscle Testing Right Dorsiflexion (L4) 4- Good- Plantarflexion (S1) 3+ Fair+ Inversion 4- Good- Eversion (S1) 4 Good Left Dorsiflexion (L4) 4 Good Plantarflexion (S1) 3+ Fair+ Inversion 4- Good- Eversion (S1) 4 Good PT-OP-N Lymphedema Start: 06/23/18 11:50 Freq: Status: Active Protocol: Document 06/20/18 10:32 SAK (Rec: 06/23/18 11:56 SAK [id number]) Lymphedema Measurements Comments Lymphedema Comments See circumferential measurements in paper chart; measurements today show decrease in edema. PT-OP-Q Treatments Start: 05/15/18 16:46 Freq: Status: Active Protocol: Document 06/24/18 11:15 DCW (Rec: 06/24/18 11:58 DCW [id number]) Cardio Equipment Recumbent Elliptical (Biodex) Duration (Minutes) 8 Resistance 4 Seat Position 8 Gym Equipment Cable Column (Body Solid) Hip Adduction Resistance 4 plates Reps/Time x20 Hip Abduction Resistance 3 plates Reps/Time x20 Shuttle Recovery Bilateral Heel Raises Resistance 75# Shuttle Recovery Platform Stable Reps/Time x20 Unilateral Squats Resistance 50# Shuttle Recovery Platform Stable Reps/Time x20 Bilateral Squats Resistance 75# Shuttle Recovery Platform Stable Reps/Time x20 Therapeutic Exercises Supine Exercises 5 Supine Exercise Name SLR Side bilateral Reps/Minutes x15 4 Supine Exercise Name Bridging Side bilateral Comments verbal cues for glute activation 2 Supine Exercise Name Adductor ball squeeze Side bilateral Equipment Used Small purple ball Reps/Minutes x15 Comments 5 second hold Sitting Exercises 3 Sitting Exercise Name ankle circles Reps/Minutes 10x ea direction toma Standing Exercises 1 Standing Exercise Name HC stretch, standing ankle pumps Equipment Used ADI Other Exercises 3 Other Exercise Name Resisted Backward stepping Side bilateral Resistance Yellow Equipment Used T-band 2 Other Exercise Name Resisted Forward stepping Side bilateral Resistance Yellow Equipment Used T-band 1 Other Exercise Name Resisted Side-stepping Side bilateral Resistance Yellow Equipment Used T-band PT-OP-T Assessment and Plan Start: 05/15/18 16:46 Freq: Status: Active Protocol: Document 06/24/18 11:15 DCW (Rec: 06/24/18 11:58 DCW [id number]) Physical Therapy Assessment Goals Four Impairment Ankle ROM Mcfp Goal (LTG) Bilateral ankle ROM to WNL LTG Duration 07/15/18 Three Impairment Strength Livestock Nutritionist Goal (LTG) Bilateral LE MMT grossly 4/5 LTG Duration 07/15/18 Two Impairment Edema Short Term Goal (STG) Pt girth around malleoli to decrease 3 cm STG Duration 06/14/18 Livestock Nutritionist Goal (LTG) Pt figure-8 measurement to decrease by at least 5 cm LTG Duration 07/15/18 One Impairment Activity participation Short Term Goal (STG) Pt to report ability to walk across yard without feeling off balance STG Duration 06/14/18 Assessment Summary Assessment Pt improving slowly, mild increases in activity tolerance and strength, however significant edema in ankles remains. Physical Therapy Plan Frequency and Duration Frequency of Treatment 2x/Week Duration of Treatment 12 weeks Plan of Care Start Date 05/15/18 Plan of Care End Date 08/07/18 Therapeutic Interventions Therapeutic Interventions Aquatic Therapy Gait Training Home Exercise Program Joint Mobilizations Lymphedema Management Manual Therapy Neuromuscular Re-education Patient/Caregiver Education Self-Care/Home Management Soft Tissue Mobilization Therapeutic Activities Therapeutic Exercises Modalities Cold Pack/Ice Massage Electric Stimulation Hot Packs Ultrasound Next Visit Focus/Plan Next Note Type Treatment Note Next Visit Plan Edema management, ankle strengthening, LE strengthening, manual lymphatic drainage. May consider LE lymphatic wrapping .
--- NOTE | 2018-06-27 17:03 | PT.OTN ---
Current Diagnoses Corns and callosities (06/27/18) Localized edema (06/27/18) Physical Therapy Treatment Note PT-OP-A Visit Information Start: 05/15/18 16:46 Freq: Status: Active Protocol: Document 06/27/18 10:30 SAK (Rec: 06/27/18 17:03 SAK [id number]) Out-Patient Physical Therapy Visit Information Visit Information Visit Type Treatment Note Visit Start Time 10:30 Visit Stop Time 11:15 Total Visit Minutes 45 Visit Number 9 Number of POACHER WRINGER OPERATOR Visits 0 PT-OP-B Current Condition Start: 05/15/18 16:46 Freq: Status: Active Protocol: Document 05/15/18 11:15 DCW (Rec: 05/15/18 17:32 DCW [id number]) Current Condition History of Current Condition Onset Date s/p 4 years Current Complaints Pain, weakness, edema, and neuropathy in B feet, L>R. History of Current Condition Pt is a 72 year old female reporting a complicated and tangential history of bilateral ankle edema, pain, weakness, and difficulty walking. Pt reports that following an Aortic valve replacement in October,, she was doing well for 8 months, but then began getting sicker and sicker, bouncing in and out of hospitals and nursing homes, until finding that she had an infection in her replaced valve, resulting in another surgery in June,. 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 This has made it very difficult for her to go out and participate in any activities, and she struggles just walking, or being out in her yard. 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 Hasn't obtained compression stockings : I know, so many excuses. PT-OP-H Neuro Start: 05/15/18 16:46 Freq: Status: Active Protocol: Document 05/15/18 11:15 DCW (Rec: 05/15/18 17:32 DCW [id number]) Sensation Evaluation Gross Sensation Gross Sensation Left LE Impaired Sensation Description Numbness Location Details Right Foot Light Touch Intact/Normal Sharp/Dull Intact/Normal Deep Pressure Intact/Normal Left Foot Light Touch Absent Sharp/Dull Impaired Deep Pressure Impaired PT-OP-J Posture/Palpation/Skin Start: 05/15/18 16:46 Freq: Status: Active Protocol: Document 05/15/18 11:15 DCW (Rec: 05/15/18 17:32 DCW [id number]) Skin Assessment Edema Assessment Bilateral Ankle Edema Type Pitting Edema Degree 3+ Edema Appearance Discolored Firm Subjective Edema Description Pain Tightness Circumference Measurement 4 Location 10 cm Superior to Malleoli Comments L 31, R 34.2 3 Location Malleolar Comments L 38.5, R 37.2 2 Location Mid-Arch Comments L 28.7, R 29.5 1 Location Figure-8 Ankle Comments L 72.4, R 70.5 PT-OP-K Range of Motion Start: 05/15/18 16:46 Freq: Status: Active Protocol: Document 05/15/18 11:15 DCW (Rec: 05/15/18 17:32 DCW [id number]) Ankle and Foot Goniometric Range of Motion Ankle and Foot Measured in Degrees Right Active Ankle/Foot ROM WFL No Testing Position Sitting Dorsiflexion with Knee Flexed 10 Plantarflexion 45 Inversion 20 Eversion 20 Left Active Ankle/Foot ROM WFL No Testing Position Sitting Dorsiflexion with Knee Flexed 5 Plantarflexion 42 Inversion 13 Eversion 15 Ankle and Foot ROM Limitations ROM Limitations Soft Tissue Tightness Swelling PT-OP-M Strength Start: 05/15/18 16:46 Freq: Status: Active Protocol: Document 05/15/18 11:15 DCW (Rec: 05/15/18 17:32 DCW [id number]) Hip Strength Hip Manual Muscle Testing Right Flexion (L2) 4+ Good+ Abduction 4 Good Adduction 4- Good- Left Flexion (L2) 4 Good Abduction 4 Good Adduction 4- Good- Knee Strength Knee Manual Muscle Testing Right Flexion (S2) 4+ Good+ Extension (L3) 4+ Good+ Left Flexion (S2) 4+ Good+ Extension (L3) 4+ Good+ Ankle/Foot Strength Ankle and Foot Manual Muscle Testing Right Dorsiflexion (L4) 4- Good- Plantarflexion (S1) 3+ Fair+ Inversion 4- Good- Eversion (S1) 4 Good Left Dorsiflexion (L4) 4 Good Plantarflexion (S1) 3+ Fair+ Inversion 4- Good- Eversion (S1) 4 Good PT-OP-N Lymphedema Start: 06/23/18 11:50 Freq: Status: Active Protocol: Document 06/20/18 10:32 SAK (Rec: 06/23/18 11:56 [facility] [id number]) Lymphedema Measurements Comments Lymphedema Comments See circumferential measurements in paper chart; measurements today show decrease in edema. PT-OP-Q Treatments Start: 05/15/18 16:46 Freq: Status: Active Protocol: Document 06/27/18 10:30 SAK (Rec: 06/27/18 17:03 [facility] [id number]) Cardio Equipment Recumbent Elliptical (Biodex) Duration (Minutes) 10 Resistance 4 Seat Position 8 Self-Care/Home Management Treatment Education Other Education Recommended consultation at [facility] clinic due to patient's persistent c/o her weight, difficulty with diabetes, edema; given information Lymphedema Treatment Manual Lymphatic Drainage Location toma LE's Duration 25 min Lymphedema Wrapping Other Patient refuses, won't fit in shoes Patient Education Sequential Lymphedema Exercises done Other Further discussion of need for compression stockings; patient has been given information and has not obtained yet. Stressed importance PT-OP-T Assessment and Plan Start: 05/15/18 16:46 Freq: Status: Active Protocol: Document 06/27/18 10:30 SAK (Rec: 06/27/18 17:03 [facility] [id number]) Physical Therapy Assessment Assessment Summary Assessment Circumferential measurements at ankles worse; patient has been noncompliant with obtaining compression stockings. Still thinking about aquatic exercise. Physical Therapy Plan Frequency and Duration Frequency of Treatment 2x/Week Duration of Treatment 12 weeks Plan of Care Start Date 05/15/18 Plan of Care End Date 08/07/18 Therapeutic Interventions Therapeutic Interventions Aquatic Therapy Gait Training Home Exercise Program Joint Mobilizations Lymphedema Management Manual Therapy Neuromuscular Re-education Patient/Caregiver Education Self-Care/Home Management Soft Tissue Mobilization Therapeutic Activities Therapeutic Exercises Modalities Cold Pack/Ice Massage Electric Stimulation Hot Packs Ultrasound Next Visit Focus/Plan Next Note Type Re-Evaluation Next Visit Plan Edema management, ankle strengthening, LE strengthening, manual lymphatic drainage.
--- NOTE | 2018-07-01 11:57 | PT.OTN ---
Current Diagnoses Corns and callosities (07/01/18) Localized edema (07/01/18) Physical Therapy Treatment Note PT-OP-A Visit Information Start: 05/15/18 16:46 Freq: Status: Active Protocol: Document 07/01/18 11:15 DCW (Rec: 07/01/18 11:57 DCW [id number]) Out-Patient Physical Therapy Visit Information Visit Information Visit Type Progress Note Visit Start Time 11:15 Visit Stop Time 12:00 Total Visit Minutes 45 Visit Number 10 Number of FOREIGN LANGUAGE TEACHER Visits 0 Evaluation Information Evaluation Date 05/15/18 PT-OP-B Current Condition Start: 05/15/18 16:46 Freq: Status: Active Protocol: Document 05/15/18 11:15 DCW (Rec: 05/15/18 17:32 DCW [id number]) Current Condition History of Current Condition Onset Date s/p 4 years Current Complaints Pain, weakness, edema, and neuropathy in B feet, L>R. History of Current Condition Pt is a 72 year old female reporting a complicated and tangential history of bilateral ankle edema, pain, weakness, and difficulty walking. Pt reports that following an Aortic valve replacement in October,, she was doing well for 8 months, but then began getting sicker and sicker, bouncing in and out of hospitals and nursing homes, until finding that she had an infection in her replaced valve, resulting in another surgery in June,. 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 This has made it very difficult for her to go out and participate in any activities, and she struggles just walking, or being out in her yard. 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 PT-OP-H Neuro Start: 05/15/18 16:46 Freq: Status: Active Protocol: Document 05/15/18 11:15 DCW (Rec: 05/15/18 17:32 DCW [id number]) Sensation Evaluation Gross Sensation Gross Sensation Left LE Impaired Sensation Description Numbness Location Details Right Foot Light Touch Intact/Normal Sharp/Dull Intact/Normal Deep Pressure Intact/Normal Left Foot Light Touch Absent Sharp/Dull Impaired Deep Pressure Impaired PT-OP-J Posture/Palpation/Skin Start: 05/15/18 16:46 Freq: Status: Active Protocol: Document 05/15/18 11:15 DCW (Rec: 05/15/18 17:32 DCW [id number]) Skin Assessment Edema Assessment Bilateral Ankle Edema Type Pitting Edema Degree 3+ Edema Appearance Discolored Firm Subjective Edema Description Pain Tightness Circumference Measurement 4 Location 10 cm Superior to Malleoli Comments L 31, R 34.2 3 Location Malleolar Comments L 38.5, R 37.2 2 Location Mid-Arch Comments L 28.7, R 29.5 1 Location Figure-8 Ankle Comments L 72.4, R 70.5 PT-OP-K Range of Motion Start: 05/15/18 16:46 Freq: Status: Active Protocol: Document 05/15/18 11:15 DCW (Rec: 05/15/18 17:32 DCW [id number]) Ankle and Foot Goniometric Range of Motion Ankle and Foot Measured in Degrees Right Active Ankle/Foot ROM WFL No Testing Position Sitting Dorsiflexion with Knee Flexed 10 Plantarflexion 45 Inversion 20 Eversion 20 Left Active Ankle/Foot ROM WFL No Testing Position Sitting Dorsiflexion with Knee Flexed 5 Plantarflexion 42 Inversion 13 Eversion 15 Ankle and Foot ROM Limitations ROM Limitations Soft Tissue Tightness Swelling PT-OP-M Strength Start: 05/15/18 16:46 Freq: Status: Active Protocol: Document 05/15/18 11:15 DCW (Rec: 05/15/18 17:32 DCW [id number]) Hip Strength Hip Manual Muscle Testing Right Flexion (L2) 4+ Good+ Abduction 4 Good Adduction 4- Good- Left Flexion (L2) 4 Good Abduction 4 Good Adduction 4- Good- Knee Strength Knee Manual Muscle Testing Right Flexion (S2) 4+ Good+ Extension (L3) 4+ Good+ Left Flexion (S2) 4+ Good+ Extension (L3) 4+ Good+ Ankle/Foot Strength Ankle and Foot Manual Muscle Testing Right Dorsiflexion (L4) 4- Good- Plantarflexion (S1) 3+ Fair+ Inversion 4- Good- Eversion (S1) 4 Good Left Dorsiflexion (L4) 4 Good Plantarflexion (S1) 3+ Fair+ Inversion 4- Good- Eversion (S1) 4 Good PT-OP-N Lymphedema Start: 06/23/18 11:50 Freq: Status: Active Protocol: Document 06/20/18 10:32 SAK (Rec: 06/23/18 11:56 SAK [id number]) Lymphedema Measurements Comments Lymphedema Comments See circumferential measurements in paper chart; measurements today show decrease in edema. PT-OP-Q Treatments Start: 05/15/18 16:46 Freq: Status: Active Protocol: Document 07/01/18 11:15 DCW (Rec: 07/01/18 11:57 DCW [id number]) Cardio Equipment Recumbent Elliptical ([email or web address]) Duration (Minutes) 8 Resistance 4 Seat Position 8 Gym Equipment Shuttle Recovery Bilateral Heel Raises Resistance 87# Shuttle Recovery Platform Stable Reps/Time x20 Unilateral Squats Resistance 50# Shuttle Recovery Platform Stable Reps/Time x20 Bilateral Squats Resistance 87# Shuttle Recovery Platform Stable Reps/Time x20 Therapeutic Exercises Supine Exercises 4 Supine Exercise Name Bridging Side bilateral Comments verbal cues for glute activation 3 Supine Exercise Name Heel Slide, Hip Abduction, SLR Side bilateral Reps/Minutes x15 2 Supine Exercise Name Adductor ball squeeze Side bilateral Equipment Used Small purple ball Reps/Minutes x15 Comments 5 second hold Standing Exercises 1 Standing Exercise Name HC stretch, standing ankle pumps Equipment Used ADI Other Exercises 3 Other Exercise Name Resisted Backward stepping Side bilateral Resistance Green Equipment Used T-band 2 Other Exercise Name Resisted Forward stepping Side bilateral Resistance Green Equipment Used T-band 1 Other Exercise Name Resisted Side-stepping Side bilateral Resistance Green Equipment Used T-band PT-OP-T Assessment and Plan Start: 05/15/18 16:46 Freq: Status: Active Protocol: Document 07/01/18 11:15 DCW (Rec: 07/01/18 11:57 DCW [id number]) Physical Therapy Assessment Impairments Impairments Activity Tolerance Edema Functional Activities Gait Pain ROM Sensation Soft Tissue Mobility Strength Goals Four Impairment Ankle ROM Moisture Meter Reader Goal (LTG) Bilateral ankle ROM to WNL LTG Duration 07/15/18 Three Impairment Strength Moisture Meter Reader Goal (LTG) Bilateral LE MMT grossly 4/5 LTG Duration 07/15/18 Two Impairment Edema Short Term Goal (STG) Pt girth around malleoli to decrease 3 cm STG Duration 06/14/18 Shelter Goal (LTG) Pt figure-8 measurement to decrease by at least 5 cm LTG Duration 07/15/18 One Impairment Activity participation Short Term Goal (STG) Pt to report ability to walk across yard without feeling off balance STG Duration 07/15/18 - Improving Assessment Summary Assessment Ankle edema not showing much progress, however pt displaying increased strength and balance. Physical Therapy Plan Frequency and Duration Frequency of Treatment 2x/Week Duration of Treatment 12 weeks Plan of Care Start Date 05/15/18 Plan of Care End Date 08/07/18 Therapeutic Interventions Therapeutic Interventions Aquatic Therapy Gait Training Home Exercise Program Joint Mobilizations Lymphedema Management Manual Therapy Neuromuscular Re-education Patient/Caregiver Education Self-Care/Home Management Soft Tissue Mobilization Therapeutic Activities Therapeutic Exercises Modalities Cold Pack/Ice Massage Electric Stimulation Hot Packs Ultrasound Next Visit Focus/Plan Next Note Type Treatment Note Next Visit Plan Edema management, ankle strengthening, LE strengthening, manual lymphatic drainage.
--- NOTE | 2018-07-09 11:58 | PT.OTN ---
Current Diagnoses Corns and callosities (07/09/18) Localized edema (07/09/18) Physical Therapy Treatment Note PT-OP-A Visit Information Start: 05/15/18 16:46 Freq: Status: Active Protocol: Document 07/09/18 11:15 DCW (Rec: 07/09/18 11:58 DCW [id number]) Out-Patient Physical Therapy Visit Information Visit Information Visit Type Treatment Note Visit Start Time 11:15 Visit Stop Time 12:00 Total Visit Minutes 45 Visit Number 11 Number of CLINICAL CYTOGENETICIST SCIENTIST Visits 0 Evaluation Information Evaluation Date 05/15/18 PT-OP-B Current Condition Start: 05/15/18 16:46 Freq: Status: Active Protocol: Document 05/15/18 11:15 DCW (Rec: 05/15/18 17:32 DCW [id number]) Current Condition History of Current Condition Onset Date s/p 4 years Current Complaints Pain, weakness, edema, and neuropathy in B feet, L>R. History of Current Condition Pt is a 72 year old female reporting a complicated and tangential history of bilateral ankle edema, pain, weakness, and difficulty walking. Pt reports that following an Aortic valve replacement in October,, she was doing well for 8 months, but then began getting sicker and sicker, bouncing in and out of hospitals and nursing homes, until finding that she had an infection in her replaced valve, resulting in another surgery in June,. 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 This has made it very difficult for her to go out and participate in any activities, and she struggles just walking, or being out in her yard. 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 PT-OP-H Neuro Start: 05/15/18 16:46 Freq: Status: Active Protocol: Document 05/15/18 11:15 DCW (Rec: 05/15/18 17:32 DCW [id number]) Sensation Evaluation Gross Sensation Gross Sensation Left LE Impaired Sensation Description Numbness Location Details Right Foot Light Touch Intact/Normal Sharp/Dull Intact/Normal Deep Pressure Intact/Normal Left Foot Light Touch Absent Sharp/Dull Impaired Deep Pressure Impaired PT-OP-J Posture/Palpation/Skin Start: 05/15/18 16:46 Freq: Status: Active Protocol: Document 05/15/18 11:15 DCW (Rec: 05/15/18 17:32 DCW [id number]) Skin Assessment Edema Assessment Bilateral Ankle Edema Type Pitting Edema Degree 3+ Edema Appearance Discolored Firm Subjective Edema Description Pain Tightness Circumference Measurement 4 Location 10 cm Superior to Malleoli Comments L 31, R 34.2 3 Location Malleolar Comments L 38.5, R 37.2 2 Location Mid-Arch Comments L 28.7, R 29.5 1 Location Figure-8 Ankle Comments L 72.4, R 70.5 PT-OP-K Range of Motion Start: 05/15/18 16:46 Freq: Status: Active Protocol: Document 05/15/18 11:15 DCW (Rec: 05/15/18 17:32 DCW [id number]) Ankle and Foot Goniometric Range of Motion Ankle and Foot Measured in Degrees Right Active Ankle/Foot ROM WFL No Testing Position Sitting Dorsiflexion with Knee Flexed 10 Plantarflexion 45 Inversion 20 Eversion 20 Left Active Ankle/Foot ROM WFL No Testing Position Sitting Dorsiflexion with Knee Flexed 5 Plantarflexion 42 Inversion 13 Eversion 15 Ankle and Foot ROM Limitations ROM Limitations Soft Tissue Tightness Swelling PT-OP-M Strength Start: 05/15/18 16:46 Freq: Status: Active Protocol: Document 05/15/18 11:15 DCW (Rec: 05/15/18 17:32 DCW [id number]) Hip Strength Hip Manual Muscle Testing Right Flexion (L2) 4+ Good+ Abduction 4 Good Adduction 4- Good- Left Flexion (L2) 4 Good Abduction 4 Good Adduction 4- Good- Knee Strength Knee Manual Muscle Testing Right Flexion (S2) 4+ Good+ Extension (L3) 4+ Good+ Left Flexion (S2) 4+ Good+ Extension (L3) 4+ Good+ Ankle/Foot Strength Ankle and Foot Manual Muscle Testing Right Dorsiflexion (L4) 4- Good- Plantarflexion (S1) 3+ Fair+ Inversion 4- Good- Eversion (S1) 4 Good Left Dorsiflexion (L4) 4 Good Plantarflexion (S1) 3+ Fair+ Inversion 4- Good- Eversion (S1) 4 Good PT-OP-N Lymphedema Start: 06/23/18 11:50 Freq: Status: Active Protocol: Document 06/20/18 10:32 SAK (Rec: 06/23/18 11:56 SAK [id number]) Lymphedema Measurements Comments Lymphedema Comments See circumferential measurements in paper chart; measurements today show decrease in edema. PT-OP-Q Treatments Start: 05/15/18 16:46 Freq: Status: Active Protocol: Document 07/09/18 11:15 DCW (Rec: 07/09/18 11:58 DCW [id number]) Cardio Equipment Recumbent Elliptical ([employer]) Duration (Minutes) 8 Resistance 4 Seat Position 8 Gym Equipment Shuttle Recovery Bilateral Heel Raises Resistance 87# Shuttle Recovery Platform Stable Reps/Time x20 Unilateral Squats Resistance 50# Shuttle Recovery Platform Stable Reps/Time x20 Bilateral Squats Resistance 87# Shuttle Recovery Platform Stable Reps/Time x20 Therapeutic Ball 2 Exercise Details Low trunk rotation Ball Size/Color Blue - 45 cm Body Position Supine 1 Exercise Details Reverse Leg Press /c feet on ball Ball Size/Color Blue - 45 cm Lv 1 T-band Body Position Supine Therapeutic Exercises Supine Exercises 3 Supine Exercise Name Heel Slide, Hip Abduction, SLR Side bilateral Reps/Minutes x15 2 Supine Exercise Name Adductor ball squeeze /c bridgng Side bilateral Equipment Used Small purple ball Reps/Minutes x15 Comments 5 second hold Standing Exercises 1 Standing Exercise Name HC stretch, standing ankle pumps Equipment Used ADI Other Exercises 3 Other Exercise Name Resisted Backward stepping Side bilateral Resistance Green Equipment Used T-band 2 Other Exercise Name Resisted Forward stepping Side bilateral Resistance Green Equipment Used T-band 1 Other Exercise Name Resisted Side-stepping Side bilateral Resistance Green Equipment Used T-band PT-OP-T Assessment and Plan Start: 05/15/18 16:46 Freq: Status: Active Protocol: Document 07/09/18 11:15 DCW (Rec: 07/09/18 11:58 DCW [id number]) Physical Therapy Assessment Impairments Impairments Activity Tolerance Edema Functional Activities Gait Pain ROM Sensation Soft Tissue Mobility Strength Goals Four Impairment Ankle ROM Jail Goal (LTG) Bilateral ankle ROM to WNL LTG Duration 07/15/18 Three Impairment Strength Jail Goal (LTG) Bilateral LE MMT grossly 4/5 LTG Duration 07/15/18 Two Impairment Edema Short Term Goal (STG) Pt girth around malleoli to decrease 3 cm STG Duration 06/14/18 Residential Sales Manager Goal (LTG) Pt figure-8 measurement to decrease by at least 5 cm LTG Duration 07/15/18 One Impairment Activity participation Short Term Goal (STG) Pt to report ability to walk across yard without feeling off balance STG Duration 07/15/18 - Improving Assessment Summary Assessment Pt continues to be pessimistic about the effects of PT on her ankle swelling, however pt has not been compliant with edema control instructions or obtaining compression stockings. Physical Therapy Plan Frequency and Duration Frequency of Treatment 2x/Week Duration of Treatment 12 weeks Plan of Care Start Date 05/15/18 Plan of Care End Date 08/07/18 Therapeutic Interventions Therapeutic Interventions Aquatic Therapy Gait Training Home Exercise Program Joint Mobilizations Lymphedema Management Manual Therapy Neuromuscular Re-education Patient/Caregiver Education Self-Care/Home Management Soft Tissue Mobilization Therapeutic Activities Therapeutic Exercises Modalities Cold Pack/Ice Massage Electric Stimulation Hot Packs Ultrasound Next Visit Focus/Plan Next Note Type Treatment Note Next Visit Plan Edema management, ankle strengthening, LE strengthening, manual lymphatic drainage.
--- NOTE | 2018-07-11 11:07 | PT.OTN ---
Current Diagnoses Corns and callosities (07/11/18) Localized edema (07/11/18) Physical Therapy Treatment Note PT-OP-A Visit Information Start: 05/15/18 16:46 Freq: Status: Active Protocol: Document 07/11/18 10:30 DCW (Rec: 07/11/18 11:07 DCW [id number]) Out-Patient Physical Therapy Visit Information Visit Information Visit Type Treatment Note Visit Start Time 10:30 Visit Stop Time 11:15 Total Visit Minutes 45 Visit Number 12 Number of DIVISION ORDER TECHNICIAN Visits 0 Evaluation Information Evaluation Date 05/15/18 PT-OP-B Current Condition Start: 05/15/18 16:46 Freq: Status: Active Protocol: Document 05/15/18 11:15 DCW (Rec: 05/15/18 17:32 DCW [id number]) Current Condition History of Current Condition Onset Date s/p 4 years Current Complaints Pain, weakness, edema, and neuropathy in B feet, L>R. History of Current Condition Pt is a 72 year old female reporting a complicated and tangential history of bilateral ankle edema, pain, weakness, and difficulty walking. Pt reports that following an Aortic valve replacement in October,, she was doing well for 8 months, but then began getting sicker and sicker, bouncing in and out of hospitals and nursing homes, until finding that she had an infection in her replaced valve, resulting in another surgery in June,. 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 This has made it very difficult for her to go out and participate in any activities, and she struggles just walking, or being out in her yard. 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 I just felt so lethargic on Sunday, it was like this was my first time at therapy and I had no idea what was going on. PT-OP-H Neuro Start: 05/15/18 16:46 Freq: Status: Active Protocol: Document 05/15/18 11:15 DCW (Rec: 05/15/18 17:32 DCW [id number]) Sensation Evaluation Gross Sensation Gross Sensation Left LE Impaired Sensation Description Numbness Location Details Right Foot Light Touch Intact/Normal Sharp/Dull Intact/Normal Deep Pressure Intact/Normal Left Foot Light Touch Absent Sharp/Dull Impaired Deep Pressure Impaired PT-OP-J Posture/Palpation/Skin Start: 05/15/18 16:46 Freq: Status: Active Protocol: Document 05/15/18 11:15 DCW (Rec: 05/15/18 17:32 DCW [id number]) Skin Assessment Edema Assessment Bilateral Ankle Edema Type Pitting Edema Degree 3+ Edema Appearance Discolored Firm Subjective Edema Description Pain Tightness Circumference Measurement 4 Location 10 cm Superior to Malleoli Comments L 31, R 34.2 3 Location Malleolar Comments L 38.5, R 37.2 2 Location Mid-Arch Comments L 28.7, R 29.5 1 Location Figure-8 Ankle Comments L 72.4, R 70.5 PT-OP-K Range of Motion Start: 05/15/18 16:46 Freq: Status: Active Protocol: Document 05/15/18 11:15 DCW (Rec: 05/15/18 17:32 DCW [id number]) Ankle and Foot Goniometric Range of Motion Ankle and Foot Measured in Degrees Right Active Ankle/Foot ROM WFL No Testing Position Sitting Dorsiflexion with Knee Flexed 10 Plantarflexion 45 Inversion 20 Eversion 20 Left Active Ankle/Foot ROM WFL No Testing Position Sitting Dorsiflexion with Knee Flexed 5 Plantarflexion 42 Inversion 13 Eversion 15 Ankle and Foot ROM Limitations ROM Limitations Soft Tissue Tightness Swelling PT-OP-M Strength Start: 05/15/18 16:46 Freq: Status: Active Protocol: Document 05/15/18 11:15 DCW (Rec: 05/15/18 17:32 DCW [id number]) Hip Strength Hip Manual Muscle Testing Right Flexion (L2) 4+ Good+ Abduction 4 Good Adduction 4- Good- Left Flexion (L2) 4 Good Abduction 4 Good Adduction 4- Good- Knee Strength Knee Manual Muscle Testing Right Flexion (S2) 4+ Good+ Extension (L3) 4+ Good+ Left Flexion (S2) 4+ Good+ Extension (L3) 4+ Good+ Ankle/Foot Strength Ankle and Foot Manual Muscle Testing Right Dorsiflexion (L4) 4- Good- Plantarflexion (S1) 3+ Fair+ Inversion 4- Good- Eversion (S1) 4 Good Left Dorsiflexion (L4) 4 Good Plantarflexion (S1) 3+ Fair+ Inversion 4- Good- Eversion (S1) 4 Good PT-OP-N Lymphedema Start: 06/23/18 11:50 Freq: Status: Active Protocol: Document 06/20/18 10:32 SAK (Rec: 06/23/18 11:56 SAK [id number]) Lymphedema Measurements Comments Lymphedema Comments See circumferential measurements in paper chart; measurements today show decrease in edema. PT-OP-Q Treatments Start: 05/15/18 16:46 Freq: Status: Active Protocol: Document 07/11/18 10:30 DCW (Rec: 07/11/18 11:07 DCW [id number]) Cardio Equipment Recumbent Elliptical ([employer]) Duration (Minutes) 8 Resistance 4 Seat Position 8 Gym Equipment Shuttle Recovery Bilateral Heel Raises Resistance 100# Shuttle Recovery Platform Stable Reps/Time x20 Unilateral Squats Resistance 62# Shuttle Recovery Platform Stable Reps/Time x20 Bilateral Squats Resistance 100# Shuttle Recovery Platform Stable Reps/Time x20 Therapeutic Exercises Supine Exercises 3 Supine Exercise Name Heel Slide, Hip Abduction, SLR Side bilateral Reps/Minutes x15 2 Supine Exercise Name Adductor ball squeeze /c bridgng Side bilateral Equipment Used Small purple ball Reps/Minutes x15 Comments 5 second hold Standing Exercises 1 Standing Exercise Name HC stretch, standing ankle pumps Equipment Used ADI Other Exercises 3 Other Exercise Name Resisted Backward stepping Side bilateral Resistance Green Equipment Used T-band 2 Other Exercise Name Resisted Forward stepping Side bilateral Resistance Green Equipment Used T-band 1 Other Exercise Name Resisted Side-stepping Side bilateral Resistance Green Equipment Used T-band PT-OP-T Assessment and Plan Start: 05/15/18 16:46 Freq: Status: Active Protocol: Document 07/11/18 10:30 DCW (Rec: 07/11/18 11:07 DCW [id number]) Physical Therapy Assessment Impairments Impairments Activity Tolerance Edema Functional Activities Gait Pain ROM Sensation Soft Tissue Mobility Strength Goals Four Impairment Ankle ROM Chief Construction Inspector Goal (LTG) Bilateral ankle ROM to WNL LTG Duration 07/15/18 Three Impairment Strength Jail Goal (LTG) Bilateral LE MMT grossly 4/5 LTG Duration 07/15/18 Two Impairment Edema Short Term Goal (STG) Pt girth around malleoli to decrease 3 cm STG Duration 06/14/18 Jail Goal (LTG) Pt figure-8 measurement to decrease by at least 5 cm LTG Duration 07/15/18 One Impairment Activity participation Short Term Goal (STG) Pt to report ability to walk across yard without feeling off balance STG Duration 07/15/18 - Improving Assessment Summary Assessment Pt a little more optimistic today, reports feeling stronger. Physical Therapy Plan Frequency and Duration Frequency of Treatment 2x/Week Duration of Treatment 12 weeks Plan of Care Start Date 05/15/18 Plan of Care End Date 08/07/18 Therapeutic Interventions Therapeutic Interventions Aquatic Therapy Gait Training Home Exercise Program Joint Mobilizations Lymphedema Management Manual Therapy Neuromuscular Re-education Patient/Caregiver Education Self-Care/Home Management Soft Tissue Mobilization Therapeutic Activities Therapeutic Exercises Modalities Cold Pack/Ice Massage Electric Stimulation Hot Packs Ultrasound Next Visit Focus/Plan Next Note Type Treatment Note Next Visit Plan Edema management, ankle strengthening, LE strengthening, manual lymphatic drainage.
--- NOTE | 2018-07-15 11:10 | PT.OTN ---
Current Diagnoses Corns and callosities (07/15/18) Localized edema (07/15/18) Physical Therapy Treatment Note PT-OP-A Visit Information Start: 05/15/18 16:46 Freq: Status: Active Protocol: Document 07/15/18 10:30 DCW (Rec: 07/15/18 11:10 DCW [id number]) Out-Patient Physical Therapy Visit Information Visit Information Visit Type Treatment Note Visit Start Time 10:30 Visit Stop Time 11:15 Total Visit Minutes 45 Visit Number 13 Number of [employer] HCM CONSULTANT Visits 0 Evaluation Information Evaluation Date 05/15/18 PT-OP-B Current Condition Start: 05/15/18 16:46 Freq: Status: Active Protocol: Document 05/15/18 11:15 DCW (Rec: 05/15/18 17:32 DCW [id number]) Current Condition History of Current Condition Onset Date s/p 4 years Current Complaints Pain, weakness, edema, and neuropathy in B feet, L>R. History of Current Condition Pt is a 72 year old female reporting a complicated and tangential history of bilateral ankle edema, pain, weakness, and difficulty walking. Pt reports that following an Aortic valve replacement in October,, she was doing well for 8 months, but then began getting sicker and sicker, bouncing in and out of hospitals and nursing homes, until finding that she had an infection in her replaced valve, resulting in another surgery in June,. 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 This has made it very difficult for her to go out and participate in any activities, and she struggles just walking, or being out in her yard. 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 Reports that she feels like she has more stamina, and that her ankles aren't as swollen when she wakes up in the morning. PT-OP-H Neuro Start: 05/15/18 16:46 Freq: Status: Active Protocol: Document 05/15/18 11:15 DCW (Rec: 05/15/18 17:32 DCW [id number]) Sensation Evaluation Gross Sensation Gross Sensation Left LE Impaired Sensation Description Numbness Location Details Right Foot Light Touch Intact/Normal Sharp/Dull Intact/Normal Deep Pressure Intact/Normal Left Foot Light Touch Absent Sharp/Dull Impaired Deep Pressure Impaired PT-OP-J Posture/Palpation/Skin Start: 05/15/18 16:46 Freq: Status: Active Protocol: Document 05/15/18 11:15 DCW (Rec: 05/15/18 17:32 DCW [id number]) Skin Assessment Edema Assessment Bilateral Ankle Edema Type Pitting Edema Degree 3+ Edema Appearance Discolored Firm Subjective Edema Description Pain Tightness Circumference Measurement 4 Location 10 cm Superior to Malleoli Comments L 31, R 34.2 3 Location Malleolar Comments L 38.5, R 37.2 2 Location Mid-Arch Comments L 28.7, R 29.5 1 Location Figure-8 Ankle Comments L 72.4, R 70.5 PT-OP-K Range of Motion Start: 05/15/18 16:46 Freq: Status: Active Protocol: Document 05/15/18 11:15 DCW (Rec: 05/15/18 17:32 DCW [id number]) Ankle and Foot Goniometric Range of Motion Ankle and Foot Measured in Degrees Right Active Ankle/Foot ROM WFL No Testing Position Sitting Dorsiflexion with Knee Flexed 10 Plantarflexion 45 Inversion 20 Eversion 20 Left Active Ankle/Foot ROM WFL No Testing Position Sitting Dorsiflexion with Knee Flexed 5 Plantarflexion 42 Inversion 13 Eversion 15 Ankle and Foot ROM Limitations ROM Limitations Soft Tissue Tightness Swelling PT-OP-M Strength Start: 05/15/18 16:46 Freq: Status: Active Protocol: Document 05/15/18 11:15 DCW (Rec: 05/15/18 17:32 DCW [id number]) Hip Strength Hip Manual Muscle Testing Right Flexion (L2) 4+ Good+ Abduction 4 Good Adduction 4- Good- Left Flexion (L2) 4 Good Abduction 4 Good Adduction 4- Good- Knee Strength Knee Manual Muscle Testing Right Flexion (S2) 4+ Good+ Extension (L3) 4+ Good+ Left Flexion (S2) 4+ Good+ Extension (L3) 4+ Good+ Ankle/Foot Strength Ankle and Foot Manual Muscle Testing Right Dorsiflexion (L4) 4- Good- Plantarflexion (S1) 3+ Fair+ Inversion 4- Good- Eversion (S1) 4 Good Left Dorsiflexion (L4) 4 Good Plantarflexion (S1) 3+ Fair+ Inversion 4- Good- Eversion (S1) 4 Good PT-OP-N Lymphedema Start: 06/23/18 11:50 Freq: Status: Active Protocol: Document 06/20/18 10:32 SAK (Rec: 06/23/18 11:56 SAK [id number]) Lymphedema Measurements Comments Lymphedema Comments See circumferential measurements in paper chart; measurements today show decrease in edema. PT-OP-Q Treatments Start: 05/15/18 16:46 Freq: Status: Active Protocol: Document 07/15/18 10:30 DCW (Rec: 07/15/18 11:10 DCW [id number]) Cardio Equipment Recumbent Elliptical (Biodex) Duration (Minutes) 8 Resistance 4 Seat Position 8 Gym Equipment Shuttle Recovery Bilateral Heel Raises Resistance 100# Shuttle Recovery Platform Stable Reps/Time x20 Unilateral Squats Resistance 62# Shuttle Recovery Platform Stable Reps/Time x20 Bilateral Squats Resistance 100# Shuttle Recovery Platform Stable Reps/Time x20 Therapeutic Ball 2 Exercise Details Low trunk rotation Ball Size/Color Blue - 45 cm Body Position Supine 1 Exercise Details Reverse Leg Press /c feet on ball Ball Size/Color Blue - 45 cm Lv 1 T-band Body Position Supine Therapeutic Exercises Supine Exercises 3 Supine Exercise Name Heel Slide, Hip Abduction, SLR Side bilateral Reps/Minutes x15 Standing Exercises 1 Standing Exercise Name HC stretch, standing ankle pumps Equipment Used ADI Other Exercises 3 Other Exercise Name Resisted Backward stepping Side bilateral Resistance Green Equipment Used T-band 2 Other Exercise Name Resisted Forward stepping Side bilateral Resistance Green Equipment Used T-band 1 Other Exercise Name Resisted Side-stepping Side bilateral Resistance Green Equipment Used T-band PT-OP-T Assessment and Plan Start: 05/15/18 16:46 Freq: Status: Active Protocol: Document 07/15/18 10:30 DCW (Rec: 07/15/18 11:10 DCW [id number]) Physical Therapy Assessment Impairments Impairments Activity Tolerance Edema Functional Activities Gait Pain ROM Sensation Soft Tissue Mobility Strength Goals Four Impairment Ankle ROM Skilled Nursing Goal (LTG) Bilateral ankle ROM to WNL LTG Duration 07/15/18 Three Impairment Strength Precision Aircraft Systems Assembler Goal (LTG) Bilateral LE MMT grossly 4/5 LTG Duration 07/15/18 Two Impairment Edema Short Term Goal (STG) Pt girth around malleoli to decrease 3 cm STG Duration 06/14/18 [employer] Aircraft Systems Assembler Goal (LTG) Pt figure-8 measurement to decrease by at least 5 cm LTG Duration 07/15/18 One Impairment Activity participation Short Term Goal (STG) Pt to report ability to walk across yard without feeling off balance STG Duration 07/15/18 - Improving Assessment Summary Assessment Pt worried that her knee will end up limiting her recovery, and thinks she will need a knee replacement at some point . Physical Therapy Plan Frequency and Duration Frequency of Treatment 2x/Week Duration of Treatment 12 weeks Plan of Care Start Date 05/15/18 Plan of Care End Date 08/07/18 Therapeutic Interventions Therapeutic Interventions Aquatic Therapy Gait Training Home Exercise Program Joint Mobilizations Lymphedema Management Manual Therapy Neuromuscular Re-education Patient/Caregiver Education Self-Care/Home Management Soft Tissue Mobilization Therapeutic Activities Therapeutic Exercises Modalities Cold Pack/Ice Massage Electric Stimulation Hot Packs Ultrasound Next Visit Focus/Plan Next Note Type Treatment Note Next Visit Plan Edema management, ankle strengthening, LE strengthening, manual lymphatic drainage.
--- NOTE | 2018-07-18 16:15 | PT.OTN ---
Current Diagnoses Corns and callosities (07/18/18) Localized edema (07/18/18) Physical Therapy Treatment Note PT-OP-A Visit Information Start: 05/15/18 16:46 Freq: Status: Active Protocol: Document 07/18/18 10:29 SAK (Rec: 07/18/18 11:14 [facility] [id number]) Out-Patient Physical Therapy Visit Information Visit Information Visit Type Treatment Note Visit Start Time 10:30 Visit Stop Time 11:15 Total Visit Minutes 45 Visit Number 14 Number of CONCRETE MIXING TRUCK DRIVER Visits 0 Evaluation Information Evaluation Date 05/15/18 PT-OP-B Current Condition Start: 05/15/18 16:46 Freq: Status: Active Protocol: Document 05/15/18 11:15 DCW (Rec: 05/15/18 17:32 DCW [id number]) Current Condition History of Current Condition Onset Date s/p 4 years Current Complaints Pain, weakness, edema, and neuropathy in B feet, L>R. History of Current Condition Pt is a 72 year old female reporting a complicated and tangential history of bilateral ankle edema, pain, weakness, and difficulty walking. Pt reports that following an Aortic valve replacement in October,, she was doing well for 8 months, but then began getting sicker and sicker, bouncing in and out of hospitals and nursing homes, until finding that she had an infection in her replaced valve, resulting in another surgery in June,. 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 This has made it very difficult for her to go out and participate in any activities, and she struggles just walking, or being out in her yard. 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 PT-OP-H Neuro Start: 05/15/18 16:46 Freq: Status: Active Protocol: Document 05/15/18 11:15 DCW (Rec: 05/15/18 17:32 DCW [id number]) Sensation Evaluation Gross Sensation Gross Sensation Left LE Impaired Sensation Description Numbness Location Details Right Foot Light Touch Intact/Normal Sharp/Dull Intact/Normal Deep Pressure Intact/Normal Left Foot Light Touch Absent Sharp/Dull Impaired Deep Pressure Impaired PT-OP-J Posture/Palpation/Skin Start: 05/15/18 16:46 Freq: Status: Active Protocol: Document 05/15/18 11:15 DCW (Rec: 05/15/18 17:32 DCW [id number]) Skin Assessment Edema Assessment Bilateral Ankle Edema Type Pitting Edema Degree 3+ Edema Appearance Discolored Firm Subjective Edema Description Pain Tightness Circumference Measurement 4 Location 10 cm Superior to Malleoli Comments L 31, R 34.2 3 Location Malleolar Comments L 38.5, R 37.2 2 Location Mid-Arch Comments L 28.7, R 29.5 1 Location Figure-8 Ankle Comments L 72.4, R 70.5 PT-OP-K Range of Motion Start: 05/15/18 16:46 Freq: Status: Active Protocol: Document 05/15/18 11:15 DCW (Rec: 05/15/18 17:32 DCW [id number]) Ankle and Foot Goniometric Range of Motion Ankle and Foot Measured in Degrees Right Active Ankle/Foot ROM WFL No Testing Position Sitting Dorsiflexion with Knee Flexed 10 Plantarflexion 45 Inversion 20 Eversion 20 Left Active Ankle/Foot ROM WFL No Testing Position Sitting Dorsiflexion with Knee Flexed 5 Plantarflexion 42 Inversion 13 Eversion 15 Ankle and Foot ROM Limitations ROM Limitations Soft Tissue Tightness Swelling PT-OP-M Strength Start: 05/15/18 16:46 Freq: Status: Active Protocol: Document 05/15/18 11:15 DCW (Rec: 05/15/18 17:32 DCW [id number]) Hip Strength Hip Manual Muscle Testing Right Flexion (L2) 4+ Good+ Abduction 4 Good Adduction 4- Good- Left Flexion (L2) 4 Good Abduction 4 Good Adduction 4- Good- Knee Strength Knee Manual Muscle Testing Right Flexion (S2) 4+ Good+ Extension (L3) 4+ Good+ Left Flexion (S2) 4+ Good+ Extension (L3) 4+ Good+ Ankle/Foot Strength Ankle and Foot Manual Muscle Testing Right Dorsiflexion (L4) 4- Good- Plantarflexion (S1) 3+ Fair+ Inversion 4- Good- Eversion (S1) 4 Good Left Dorsiflexion (L4) 4 Good Plantarflexion (S1) 3+ Fair+ Inversion 4- Good- Eversion (S1) 4 Good PT-OP-N Lymphedema Start: 06/23/18 11:50 Freq: Status: Active Protocol: Document 06/20/18 10:32 [facility] (Rec: 06/23/18 11:56 [facility] [id number]) Lymphedema Measurements Comments Lymphedema Comments See circumferential measurements in paper chart; measurements today show decrease in edema. PT-OP-Q Treatments Start: 05/15/18 16:46 Freq: Status: Active Protocol: Document 07/18/18 10:29 [facility] (Rec: 07/18/18 11:14 [facility] [id number]) Cardio Equipment Recumbent Elliptical (BiodNeokinetics) Duration (Minutes) 8 Resistance 4 Seat Position 8 Therapeutic Exercises Standing Exercises 1 Standing Exercise Name HC stretch, standing ankle pumps Equipment Used DAI Lymphedema Treatment Manual Lymphatic Drainage Location toma LE's Duration 25 min Lymphedema Wrapping Other Patient refuses, won't fit in shoes Sequential Lymphedema Exercises Location toma LE's, supine Patient Education Other Patient instructed in donning of stockings, make sure no wrinkles to prevent tourniquet effect. If not helpful, will need to wrap LE's PT-OP-T Assessment and Plan Start: 05/15/18 16:46 Freq: Status: Active Protocol: Document 07/18/18 10:29 [facility] (Rec: 07/18/18 11:14 [facility] [id number]) Physical Therapy Assessment Goals Four Impairment Ankle ROM Financial Planning Analyst Goal (LTG) Bilateral ankle ROM to WNL LTG Duration 07/15/18 Three Impairment Strength Shelter Goal (LTG) Bilateral LE MMT grossly 4/5 LTG Duration 07/15/18 Two Impairment Edema Short Term Goal (STG) Pt girth around malleoli to decrease 3 cm STG Duration 06/14/18 Financial Planning Analyst Goal (LTG) Pt figure-8 measurement to decrease by at least 5 cm LTG Duration 07/15/18 One Impairment Activity participation Short Term Goal (STG) Pt to report ability to walk across yard without feeling off balance STG Duration 07/15/18 - Improving Progress Towards Goals Progress Towards Goals Progressing Toward Goals Assessment Summary Assessment Patient demonstrating increased compliance to elevation of LE's, HEP, reports feeling better overall . Finally able to get compression stockings ordered Physical Therapy Plan Frequency and Duration Frequency of Treatment 2x/Week Duration of Treatment 12 weeks Plan of Care Start Date 05/15/18 Plan of Care End Date 08/07/18 Therapeutic Interventions Therapeutic Interventions Aquatic Therapy Gait Training Home Exercise Program Joint Mobilizations Lymphedema Management Manual Therapy Neuromuscular Re-education Patient/Caregiver Education Self-Care/Home Management Soft Tissue Mobilization Therapeutic Activities Therapeutic Exercises Modalities Cold Pack/Ice Massage Electric Stimulation Hot Packs Ultrasound Next Visit Focus/Plan Next Note Type Treatment Note Next Visit Plan Assess fit of compression stockings.
--- NOTE | 2018-07-22 11:10 | PT.OTN ---
Current Diagnoses Corns and callosities (07/22/18) Localized edema (07/22/18) Physical Therapy Treatment Note PT-OP-A Visit Information Start: 05/15/18 16:46 Freq: Status: Active Protocol: Document 07/22/18 10:30 DCW (Rec: 07/22/18 11:10 DCW [id number]) Out-Patient Physical Therapy Visit Information Visit Information Visit Type Treatment Note Visit Start Time 10:30 Visit Stop Time 11:20 Total Visit Minutes 50 Visit Number 15 Number of CORPORATE LOGISTICS MANAGER Visits 0 Evaluation Information Evaluation Date 05/15/18 PT-OP-B Current Condition Start: 05/15/18 16:46 Freq: Status: Active Protocol: Document 05/15/18 11:15 DCW (Rec: 05/15/18 17:32 DCW [id number]) Current Condition History of Current Condition Onset Date s/p 4 years Current Complaints Pain, weakness, edema, and neuropathy in B feet, L>R. History of Current Condition Pt is a 72 year old female reporting a complicated and tangential history of bilateral ankle edema, pain, weakness, and difficulty walking. Pt reports that following an Aortic valve replacement in October,, she was doing well for 8 months, but then began getting sicker and sicker, bouncing in and out of hospitals and nursing homes, until finding that she had an infection in her replaced valve, resulting in another surgery in June,. 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 This has made it very difficult for her to go out and participate in any activities, and she struggles just walking, or being out in her yard. 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 PT-OP-H Neuro Start: 05/15/18 16:46 Freq: Status: Active Protocol: Document 05/15/18 11:15 DCW (Rec: 05/15/18 17:32 DCW [id number]) Sensation Evaluation Gross Sensation Gross Sensation Left LE Impaired Sensation Description Numbness Location Details Right Foot Light Touch Intact/Normal Sharp/Dull Intact/Normal Deep Pressure Intact/Normal Left Foot Light Touch Absent Sharp/Dull Impaired Deep Pressure Impaired PT-OP-J Posture/Palpation/Skin Start: 05/15/18 16:46 Freq: Status: Active Protocol: Document 05/15/18 11:15 DCW (Rec: 05/15/18 17:32 DCW [id number]) Skin Assessment Edema Assessment Bilateral Ankle Edema Type Pitting Edema Degree 3+ Edema Appearance Discolored Firm Subjective Edema Description Pain Tightness Circumference Measurement 4 Location 10 cm Superior to Malleoli Comments L 31, R 34.2 3 Location Malleolar Comments L 38.5, R 37.2 2 Location Mid-Arch Comments L 28.7, R 29.5 1 Location Figure-8 Ankle Comments L 72.4, R 70.5 PT-OP-K Range of Motion Start: 05/15/18 16:46 Freq: Status: Active Protocol: Document 05/15/18 11:15 DCW (Rec: 05/15/18 17:32 DCW [id number]) Ankle and Foot Goniometric Range of Motion Ankle and Foot Measured in Degrees Right Active Ankle/Foot ROM WFL No Testing Position Sitting Dorsiflexion with Knee Flexed 10 Plantarflexion 45 Inversion 20 Eversion 20 Left Active Ankle/Foot ROM WFL No Testing Position Sitting Dorsiflexion with Knee Flexed 5 Plantarflexion 42 Inversion 13 Eversion 15 Ankle and Foot ROM Limitations ROM Limitations Soft Tissue Tightness Swelling PT-OP-M Strength Start: 05/15/18 16:46 Freq: Status: Active Protocol: Document 05/15/18 11:15 DCW (Rec: 05/15/18 17:32 DCW [id number]) Hip Strength Hip Manual Muscle Testing Right Flexion (L2) 4+ Good+ Abduction 4 Good Adduction 4- Good- Left Flexion (L2) 4 Good Abduction 4 Good Adduction 4- Good- Knee Strength Knee Manual Muscle Testing Right Flexion (S2) 4+ Good+ Extension (L3) 4+ Good+ Left Flexion (S2) 4+ Good+ Extension (L3) 4+ Good+ Ankle/Foot Strength Ankle and Foot Manual Muscle Testing Right Dorsiflexion (L4) 4- Good- Plantarflexion (S1) 3+ Fair+ Inversion 4- Good- Eversion (S1) 4 Good Left Dorsiflexion (L4) 4 Good Plantarflexion (S1) 3+ Fair+ Inversion 4- Good- Eversion (S1) 4 Good PT-OP-N Lymphedema Start: 06/23/18 11:50 Freq: Status: Active Protocol: Document 06/20/18 10:32 SAK (Rec: 06/23/18 11:56 SAK [id number]) Lymphedema Measurements Comments Lymphedema Comments See circumferential measurements in paper chart; measurements today show decrease in edema. PT-OP-Q Treatments Start: 05/15/18 16:46 Freq: Status: Active Protocol: Document 07/22/18 10:30 DCW (Rec: 07/22/18 11:10 DCW [id number]) Cardio Equipment Recumbent Elliptical (Biodex) Duration (Minutes) 8 Resistance 4 Seat Position 8 Gym Equipment Shuttle Recovery Bilateral Heel Raises Resistance 100# Shuttle Recovery Platform Stable Reps/Time x20 Unilateral Squats Resistance 62# Shuttle Recovery Platform Stable Reps/Time x20 Bilateral Squats Resistance 100# Shuttle Recovery Platform Stable Reps/Time x20 Therapeutic Ball 2 Exercise Details Low trunk rotation Ball Size/Color Blue - 45 cm Body Position Supine 1 Exercise Details Reverse Leg Press /c feet on ball Ball Size/Color Blue - 45 cm Lv 2 T-band Body Position Supine Therapeutic Exercises Supine Exercises 6 Supine Exercise Name ER in hooklying Side bilateral Resistance Lv 2 Equipment Used T-band 3 Supine Exercise Name Heel Slide, Hip Abduction, SLR Side bilateral Reps/Minutes x15 2 Supine Exercise Name Adductor ball squeeze /c bridgng Side bilateral Equipment Used Small purple ball Reps/Minutes x15 Comments 5 second hold Standing Exercises 1 Standing Exercise Name HC stretch, standing ankle pumps Equipment Used ADI Other Exercises 3 Other Exercise Name Resisted Backward stepping Side bilateral Resistance Green Equipment Used T-band 2 Other Exercise Name Resisted Forward stepping Side bilateral Resistance Green Equipment Used T-band 1 Other Exercise Name Resisted Side-stepping Side bilateral Resistance Green Equipment Used T-band PT-OP-R Modalities Start: 07/22/18 11:10 Freq: Status: Active Protocol: Document 07/22/18 10:30 DCW (Rec: 07/22/18 11:10 DCW [id number]) Hot Pack/Cold Pack Treatment Ice Massage Location Right knee Patient Position Hooklying Treatment Duration (minutes) 10 Patient Tolerance Good PT-OP-T Assessment and Plan Start: 05/15/18 16:46 Freq: Status: Active Protocol: Document 07/22/18 10:30 DCW (Rec: 07/22/18 11:10 DCW [id number]) Physical Therapy Assessment Impairments Impairments Activity Tolerance Edema Functional Activities Gait Pain ROM Sensation Soft Tissue Mobility Strength Goals Four Impairment Ankle ROM Oil Analyst Goal (LTG) Bilateral ankle ROM to WNL LTG Duration 07/15/18 Three Impairment Strength Prison Goal (LTG) Bilateral LE MMT grossly 4/5 LTG Duration 07/15/18 Two Impairment Edema Short Term Goal (STG) Pt girth around malleoli to decrease 3 cm STG Duration 06/14/18 Oil Analyst Goal (LTG) Pt figure-8 measurement to decrease by at least 5 cm LTG Duration 07/15/18 One Impairment Activity participation Short Term Goal (STG) Pt to report ability to walk across yard without feeling off balance STG Duration 07/15/18 - Improving Assessment Summary Assessment Pt knee continues to bother her during her therapy sessions, limiting her participation. Physical Therapy Plan Frequency and Duration Frequency of Treatment 2x/Week Duration of Treatment 12 weeks Plan of Care Start Date 05/15/18 Plan of Care End Date 08/07/18 Therapeutic Interventions Therapeutic Interventions Aquatic Therapy Gait Training Home Exercise Program Joint Mobilizations Lymphedema Management Manual Therapy Neuromuscular Re-education Patient/Caregiver Education Self-Care/Home Management Soft Tissue Mobilization Therapeutic Activities Therapeutic Exercises Modalities Cold Pack/Ice Massage Electric Stimulation Hot Packs Ultrasound Next Visit Focus/Plan Next Note Type Treatment Note Next Visit Plan Continue current POC
--- NOTE | 2018-10-08 11:41 | PT.OPDS ---
Current Diagnoses Corns and callosities (07/22/18) Localized edema (07/22/18) Provider Visit Care Team Role Provider Type Stefani Simpson PA-C Attending Provider Non-Staff Specialty: Medical Address: [address] [place] [address], [id number] Email: Visit Number Visit Number 15 Discharge Summary PT-OP-B Current Condition Start: 05/15/18 16:46 Freq: Status: Active Protocol: Document 05/15/18 11:15 DCW (Rec: 05/15/18 17:32 DCW [id number]) Current Condition History of Current Condition Onset Date s/p 4 years Current Complaints Pain, weakness, edema, and neuropathy in B feet, L>R. History of Current Condition Pt is a 72 year old female reporting a complicated and tangential history of bilateral ankle edema, pain, weakness, and difficulty walking. Pt reports that following an Aortic valve replacement in October,, she was doing well for 8 months, but then began getting sicker and sicker, bouncing in and out of hospitals and nursing homes, until finding that she had an infection in her replaced valve, resulting in another surgery in June,. 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 This has made it very difficult for her to go out and participate in any activities, and she struggles just walking, or being out in her yard. 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 PT-OP-H Neuro Start: 05/15/18 16:46 Freq: Status: Active Protocol: Document 05/15/18 11:15 DCW (Rec: 05/15/18 17:32 DCW [id number]) Sensation Evaluation Gross Sensation Gross Sensation Left LE Impaired Sensation Description Numbness Location Details Right Foot Light Touch Intact/Normal Sharp/Dull Intact/Normal Deep Pressure Intact/Normal Left Foot Light Touch Absent Sharp/Dull Impaired Deep Pressure Impaired PT-OP-J Posture/Palpation/Skin Start: 05/15/18 16:46 Freq: Status: Active Protocol: Document 05/15/18 11:15 DCW (Rec: 05/15/18 17:32 DCW [id number]) Skin Assessment Edema Assessment Bilateral Ankle Edema Type Pitting Edema Degree 3+ Edema Appearance Discolored Firm Subjective Edema Description Pain Tightness Circumference Measurement 4 Location 10 cm Superior to Malleoli Comments L 31, R 34.2 3 Location Malleolar Comments L 38.5, R 37.2 2 Location Mid-Arch Comments L 28.7, R 29.5 1 Location Figure-8 Ankle Comments L 72.4, R 70.5 PT-OP-K Range of Motion Start: 05/15/18 16:46 Freq: Status: Active Protocol: Document 05/15/18 11:15 DCW (Rec: 05/15/18 17:32 DCW [id number]) Ankle and Foot Goniometric Range of Motion Ankle and Foot Measured in Degrees Right Active Ankle/Foot ROM WFL No Testing Position Sitting Dorsiflexion with Knee Flexed 10 Plantarflexion 45 Inversion 20 Eversion 20 Left Active Ankle/Foot ROM WFL No Testing Position Sitting Dorsiflexion with Knee Flexed 5 Plantarflexion 42 Inversion 13 Eversion 15 Ankle and Foot ROM Limitations ROM Limitations Soft Tissue Tightness Swelling PT-OP-M Strength Start: 05/15/18 16:46 Freq: Status: Active Protocol: Document 05/15/18 11:15 DCW (Rec: 05/15/18 17:32 DCW [id number]) Hip Strength Hip Manual Muscle Testing Right Flexion (L2) 4+ Good+ Abduction 4 Good Adduction 4- Good- Left Flexion (L2) 4 Good Abduction 4 Good Adduction 4- Good- Knee Strength Knee Manual Muscle Testing Right Flexion (S2) 4+ Good+ Extension (L3) 4+ Good+ Left Flexion (S2) 4+ Good+ Extension (L3) 4+ Good+ Ankle/Foot Strength Ankle and Foot Manual Muscle Testing Right Dorsiflexion (L4) 4- Good- Plantarflexion (S1) 3+ Fair+ Inversion 4- Good- Eversion (S1) 4 Good Left Dorsiflexion (L4) 4 Good Plantarflexion (S1) 3+ Fair+ Inversion 4- Good- Eversion (S1) 4 Good PT-OP-N Lymphedema Start: 06/23/18 11:50 Freq: Status: Active Protocol: Document 06/20/18 10:32 SAK (Rec: 06/23/18 11:56 SAK [id number]) Lymphedema Measurements Comments Lymphedema Comments See circumferential measurements in paper chart; measurements today show decrease in edema. PT-OP-T Assessment and Plan Start: 05/15/18 16:46 Freq: Status: Active Protocol: Document 10/08/18 11:41 DCW (Rec: 10/08/18 11:41 DCW [id number]) Physical Therapy Assessment Goals Four Impairment Ankle ROM Prison Goal (LTG) Bilateral ankle ROM to WNL LTG Duration 07/15/18 Three Impairment Strength Prison Goal (LTG) Bilateral LE MMT grossly 4/5 LTG Duration 07/15/18 Two Impairment Edema Short Term Goal (STG) Pt girth around malleoli to decrease 3 cm STG Duration 06/14/18 Prison Goal (LTG) Pt figure-8 measurement to decrease by at least 5 cm LTG Duration 07/15/18 One Impairment Activity participation Short Term Goal (STG) Pt to report ability to walk across yard without feeling off balance STG Duration 07/15/18 - Improving Physical Therapy Plan Discharge Physical Therapy Discharge Reasons No Longer Attending PT Discharge Comments Pt did not schedule any further visits after their last attended visit, and has now not been seen in more than three months. Pt will be discharged from skilled therapy at this time, and will require a new referral in order to return.
== END 2018-11-21 09:04 ==
LOC: PHYS 10:30
DX: R60.0 Localized edema (principal); L84 Corns and callosities
CPT/HCPCS: 97010; 97110; 97140; 97163; 97535